=== PATIENT | male | born 1980 | race Caucasian/White ===

== ENCOUNTER → 2018-06-24 15:26 | Outpatient (CLI) | payer BC, SELFPAY ==
[2018-06-24 15:44] LABS: Basophils % 0.4 % (0.1-2.0); Eosinophils # 0.2 K/mm3 (0.0-0.4); Hematocrit 43.7 % (42.0-52.0); Hemoglobin 14.8 g/dL (14.1-18.0); Lymphocytes # 2.2 K/mm3 (0.7-4.5); Lymphocytes % 24.4 % (10-50); Mean Corpuscular Volume 85.4 fl (80-94); Mean Platelet Volume 6.9 fl (7.4-10.4); Monocytes # 0.4 K/mm3 (0.1-1.0); Monocytes % 4.6 % (1.7-9.3); Neutrophils # 6.1 K/mm3 (1.8-7.8); Neutrophils % 68.6 % (37.0-80.0); Platelet Count 272 K/mm3 (142-424); Red Blood Count 5.12 M/mm3 (4.60-6.20); Red Cell Distribution Width 13.6 % (11.5-17.5); White Blood Count 8.9 K/mm3 (4.8-10.8)
[2018-06-24 16:19] LABS: Alanine Aminotransferase 24 U/L (12-78); Albumin Level 3.6 gm/dL (3.4-5.0); Albumin/Globulin Ratio 1.1 (1.1-1.8); Alkaline Phosphatase 84 U/L (46-116); Anion Gap 11.1 mEq/L (5-15); Aspartate Amino Transferase 10 U/L (15-37); Bilirubin,Total 0.5 mg/dL (0.2-1.0); Blood Urea Nitrogen 15 mg/dL (7-18); Calcium 8.6 mg/dL (8.5-10.1); Carbon Dioxide 28 mmol/L (21.0-32.0); Chloride 106 mmol/L (98-107); Cholesterol 172 mg/dL (140-200); Creatinine,Serum 0.91 mg/dL (0.70-1.30); Estimated Glomerular Filt Rate 93 ml/min (>60); GFR (African American) 112 ML/MIN (>60); Globulin 3.4 gm/dl (1.3-3.2); Glucose 97 mg/dL (74-106); HDL Cholesterol 43 mg/dL (27-67); LDL Cholesterol 110 mg/dL (0-130); Potassium 4.1 mmoL/L (3.5-5.1); Sodium 141 mmol/L (136-145); Thyroid Stimulating Hormone 0.46 uIU/ml (0.358-3.740); Triglycerides 96 mg/dL (30-200); VLDL Cholesterol 19 mg/dL (0-40)
== END ==
PROVIDERS: Visit Provider Nurse Practitioner Family
DX: R53.83 Other fatigue (principal)
CPT/HCPCS: 36415; 80053; 80061; 84443; 85025

== ENCOUNTER → 2018-09-16 15:50 | Outpatient (CLI) | payer BC, SELFPAY | PROVIDERS: PCP Emergency Medicine; Visit Provider Nurse Practitioner Family | DX: R53.83 Other fatigue (principal) | CPT/HCPCS: 95806 ==

== ENCOUNTER → 2019-01-17 13:17 | Outpatient (CLI) | payer BC, SELFPAY | PROVIDERS: Visit Provider Nurse Practitioner Family | DX: N50.819 Testicular pain, unspecified (principal) | CPT/HCPCS: 87086 ==

== ENCOUNTER → 2019-03-30 11:19 | Outpatient (CLI) | payer BC, SELFPAY | PROVIDERS: PCP Nurse Practitioner Family; Visit Provider Nurse Practitioner Family | DX: G47.33 Obstructive sleep apnea (adult) (pediatric) (principal); I10 Essential (primary) hypertension | CPT/HCPCS: 94762 ==

== ENCOUNTER → 2019-07-04 13:46 | Outpatient (CLI) | payer BC, SELFPAY ==
[2019-07-04 14:13] LABS: Basophils % 0.4 % (0.1-2.0); Eosinophils # 0.2 K/mm3 (0.0-0.4); Eosinophils % 2.4 % (0.1-12.0); Hematocrit 45.1 % (42.0-52.0); Hemoglobin 14.4 g/dL (14.1-18.0); Lymphocytes # 2.9 K/mm3 (0.7-4.5); Lymphocytes % 30.8 % (10-50); Mean Corpuscular Hemoglobin 27.6 pg (27.0-31.2); Mean Corpuscular Volume 86.3 fl (80-94); Mean Platelet Volume 7.8 fl (7.4-10.4); Monocytes # 0.5 K/mm3 (0.1-1.0); Neutrophils # 5.8 K/mm3 (1.8-7.8); Neutrophils % 61.3 % (37.0-80.0); Platelet Count 366 K/mm3 (142-424); Red Blood Count 5.23 M/mm3 (4.60-6.20); Red Cell Distribution Width 13.3 % (11.5-17.5); White Blood Count 9.5 K/mm3 (4.8-10.8)
[2019-07-04 14:43] LABS: Alanine Aminotransferase 34 U/L (12-78); Albumin Level 3.8 gm/dL (3.4-5.0); Albumin/Globulin Ratio 1.2 (1.1-1.8); Alkaline Phosphatase 83 U/L (46-116); Anion Gap 13.9 mEq/L (5-15); Aspartate Amino Transferase 28 U/L (15-37); Bilirubin,Total 0.3 mg/dL (0.2-1.0); Blood Urea Nitrogen 26 mg/dL (7-18); Calcium 8.3 mg/dL (8.5-10.1); Carbon Dioxide 27 mmol/L (21.0-32.0); Chloride 103 mmol/L (98-107); Chol/HDL Ratio 4.1 (1-3.5); Cholesterol 171 mg/dL (140-200); Creatinine,Serum 1.24 mg/dL (0.70-1.30); Estimated Glomerular Filt Rate 65 ml/min (>60); GFR (African American) 78 ML/MIN (>60); Globulin 3.3 gm/dl (1.3-3.2); Glucose 91 mg/dL (74-106); HDL Cholesterol 42 mg/dL (27-67); LDL Cholesterol 109 mg/dL (0-130); Potassium 3.9 mmoL/L (3.5-5.1); Sodium 140 mmol/L (136-145); T4 (Thyroxine) 10.6 ug/dl (4.7-13.3); Thyroid Stimulating Hormone 2.36 uIU/ml (0.358-3.740); Total Protein,Serum 7.1 gm/dL (6.4-8.2); Triglycerides 100 mg/dL (30-200); VLDL Cholesterol 20 mg/dL (0-40)
[2019-07-05 14:12] LABS: Vitamin D 25 Hydroxy 17.9 ng/mL (30.0-100.0)
== END ==
PROVIDERS: Visit Provider Nurse Practitioner Family
DX: K04.7 Periapical abscess without sinus (principal); I10 Essential (primary) hypertension; E55.9 Vitamin D deficiency, unspecified
CPT/HCPCS: 80053; 80061; 82652; 84436; 84443; 85025

== ENCOUNTER → 2020-01-03 12:56 | Outpatient (CLI) | payer BC, SELFPAY ==
[2020-01-03 14:19] LABS: Basophils # 0.1 K/mm3 (0-0.2); Basophils % 0.5 % (0.1-2.0); Eosinophils # 0.2 K/mm3 (0.0-0.4); Eosinophils % 2.4 % (0.1-12.0); Hematocrit 41.1 % (42.0-52.0); Hemoglobin 13.8 g/dL (14.1-18.0); Lymphocytes # 2.8 K/mm3 (0.7-4.5); Lymphocytes % 31.3 % (10-50); Mean Corpuscular HGB Conc 33.5 g/dL (31.8-35.4); Mean Corpuscular Hemoglobin 28.5 pg (27.0-31.2); Mean Corpuscular Volume 85.1 fl (80-94); Mean Platelet Volume 7.8 fl (7.4-10.4); Monocytes # 0.6 K/mm3 (0.1-1.0); Monocytes % 6.6 % (1.7-9.3); Neutrophils # 5.3 K/mm3 (1.8-7.8); Neutrophils % 59.2 % (37.0-80.0); Platelet Count 289 K/mm3 (142-424); Red Blood Count 4.83 M/mm3 (4.60-6.20); Red Cell Distribution Width 13.8 % (11.5-17.5)
[2020-01-03 14:32] LABS: Chloride 104 mmol/L (98-107)
[2020-01-03 14:33] LABS: Potassium 3.7 mmoL/L (3.5-5.1); Sodium 139 mmol/L (136-145)
[2020-01-03 14:35] LABS: Alanine Aminotransferase 22 U/L (12-78); Alkaline Phosphatase 74 U/L (38-126); Anion Gap 9.7 mEq/L (5-15); Aspartate Amino Transferase 27 U/L (17-59); Bilirubin,Total 0.4 mg/dl (0.2-1.3); Blood Urea Nitrogen 18 mg/dl (9-20); Carbon Dioxide 29 mmol/L (22.0-30.0); Cholesterol 148 mg/dl (140-200); Estimated Glomerular Filt Rate 93 ml/min (>60); GFR (African American) 113 ML/MIN (>60); Triglycerides 165 mg/dl (30-150); VLDL Cholesterol 33 mg/dL (0-40)
[2020-01-03 14:36] LABS: Albumin Level 3.6 g/dl (3.5-5.0); Albumin/Globulin Ratio 1.3 (1.1-1.8); Chol/HDL Ratio 3.5 (1-3.5); Globulin 2.7 g/dL (1.3-3.2); Glucose 78 mg/dl (74-100); HDL Cholesterol 42 mg/dl (40-60); Total Protein,Serum 6.3 g/dl (6.3-8.2)
[2020-01-03 15:26] LABS: Direct LDL Cholesterol 97.32 mg/dL (100-129)
[2020-01-03 15:32] LABS: T4 (Thyroxine) 8.4 ug/dl (5.53-11.0)
[2020-01-03 15:46] LABS: Thyroid Stimulating Hormone 1.78 uIU/mL (0.465-4.68)
[2020-01-04 10:01] LABS: Vitamin D 25 Hydroxy 40.4 ng/mL (30.0-100.0)
== END ==
LOC: LAB.DROPOF 12:56
PROVIDERS: Visit Provider Nurse Practitioner Family
DX: I10 Essential (primary) hypertension (principal)
CPT/HCPCS: 80053; 80061; 82652; 84436; 84443; 85025

== ENCOUNTER → 2020-01-15 12:14 | Outpatient (CLI) | payer BC, SELFPAY ==
--- NOTE | 2020-01-15 12:23 | XR_ITS ---
PROCEDURE: XR KNEE RT 4V CLINICAL INDICATION: right knee pain COMPARISON: No exams were available for comparison FINDINGS: No fracture or dislocation. No lytic or blastic change. There is normal mineralization. Mild osteoarthritic changes of the medial compartment and patellofemoral joint Other findings:None. IMPRESSION: Mild osteoarthritis Dictated by: Christian Nunez MD 01/15/2020 13:33 Electronically signed by Christian Nunez MD in [facility] 01/15/2020 13:33
--- NOTE | 2020-01-15 12:23 | XR_ITS ---
PROCEDURE: XR KNEE LT 4V CLINICAL INDICATION: left knee pain COMPARISON: No exams were available for comparison FINDINGS: No fracture or dislocation. No lytic or blastic change. There is normal mineralization. Mild osteoarthritic change of the medial compartment and patellofemoral joint Other findings:None. IMPRESSION: Mild osteoarthritis Dictated by: Christian Nunez MD 01/15/2020 13:33 Electronically signed by Christian Nunez MD in [facility] 01/15/2020 13:33
== END ==
LOC: RAD 12:18
PROVIDERS: PCP Nurse Practitioner Family; Visit Provider Orthopaedic Surgery
DX: M25.562 Pain in left knee (principal); M25.561 Pain in right knee
CPT/HCPCS: 73564

== ENCOUNTER 2020-02-14 00:03 | Emergency (ER) | payer BC, SELFPAY ==
[2020-02-14 00:17] VITALS: BP 129/79; PULSE 83; RESP 14; TEMP 36.6; O2SAT 98; BMI 50.1
[2020-02-14 00:31] LABS: Basophils % 0.4 % (0.1-2.0); Eosinophils # 0.3 K/mm3 (0.0-0.4); Eosinophils % 2.5 % (0.1-12.0); Hematocrit 42.5 % (42.0-52.0); Hemoglobin 14.6 g/dL (14.1-18.0); Lymphocytes # 2.7 K/mm3 (0.7-4.5); Lymphocytes % 24.5 % (10-50); Mean Corpuscular HGB Conc 34.3 g/dL (31.8-35.4); Mean Corpuscular Hemoglobin 28.7 pg (27.0-31.2); Mean Corpuscular Volume 83.7 fl (80-94); Mean Platelet Volume 7.3 fl (7.4-10.4); Monocytes # 0.6 K/mm3 (0.1-1.0); Monocytes % 5.2 % (1.7-9.3); Neutrophils # 7.5 K/mm3 (1.8-7.8); Neutrophils % 67.4 % (37.0-80.0); Platelet Count 279 K/mm3 (142-424); Red Blood Count 5.07 M/mm3 (4.60-6.20); Red Cell Distribution Width 13.9 % (11.5-17.5); White Blood Count 11.2 K/mm3 (4.8-10.8)
--- NOTE | 2020-02-14 00:34 | HMH.EDGENADL ---
ED Disposition Clinical Impression: Anxiety about health Disposition: Home, Self-Care Condition on Discharge: Fair Additional Instructions: We are glad to let you know that we checked your labs and no acute findings of concern are noted. Your blood pressure has returned to normal without intervention. Please follow up as needed Referrals: Barrett Youssef APRN [Primary Care Provider] - Forms: Work/School Release - Critical Care Critical Care Time: No Attestation: On 02/14/20, the high probability of a clinically significant, sudden or life threatening deterioration of the following system(s) required my full and direct attention, intervention and personal management. The time I documented below is in addition to time spent performing reported procedures but includes the following listed in this critical care notation. Medical Decision Making - Medical Records Medical records reviewed: Yes: I reviewed the patient's medical records. - Dustin Inquiry Pt receiving controlled substance: No Vital Signs: 02/14/20 00:17 02/14/20 01:45 Temperature 97.9 F Temperature Source Oral Pulse Rate [Right] 83 74 Respiratory Rate 14 14 Blood Pressure [Right Arm] 129/79 122/69 Blood Pressure Mean [Right Arm] 95 86 Blood Pressure Source [Right Arm] Automatic Cuff Blood Pressure Position [Right Arm] Supine 02 Sat by Pulse Oximetry 98 98 Oxygen Delivery Method Room Air Room Air - Lab Data Lab results reviewed: Yes: I reviewed the patient's lab results. Lab Results 02/14/20 00:25: WBC 11.2 H, RBC 5.07, Hgb 14.6, Hct 42.5, MCV 83.7, MCH 28.7, MCHC 34.3, RDW 13.9, Plt Count 279, MPV 7.3 L, Neut % (Auto) 67.4, Lymph % (Auto) 24.5, [place] % (Auto) 5.2, Eos % (Auto) 2.5, Baso % (Auto) 0.4, Neut # (Auto) 7.5, Lymph # (Auto) 2.7, [place] # (Auto) 0.6, Eos # (Auto) 0.3, Baso # (Auto) 0.0 02/14/20 00:25: Sodium 142, Potassium 3.6, Chloride 106, Carbon Dioxide 27, Anion Gap 12.6, BUN 19, Creatinine 0.90, Estimated Creat Clear 105, Estimated GFR 93, Est GFR ( Amer) 113, Glucose 122 H, Calcium 9.3, Total Bilirubin 0.5, AST 47, ALT 31, Alkaline Phosphatase 83, Total Protein 7.4, Albumin 4.3, Globulin 3.1, Albumin/Globulin Ratio 1.4 Result diagrams: 02/14/20 00:25 02/14/20 00:25 Orders (Tests/Meds): ED MEDICATIONS Generic Name Dose Route Start Last Admin Trade Name Freq PRN Reason Stop Dose Admin Sodium Chloride 1,000 mls @ 999 mls/hr 02/14/20 00:30 02/14/20 00:28 Sod Chlor 0.9% 1000ml Bag IV 02/14/20 01:30 999 mls/hr .Q1H1M MERY Administration ORDERS Category Date Time Status Troponin I Q3H Lab 02/14/20 04:15 Ordered Troponin I Q3H Lab 02/14/20 07:15 Ordered General Adult HPI - General Chief complaint: Dizziness Stated complaint: High Blood Pressure,dizziness Time Seen by Provider: 02/14/20 00:28 Mode of Arrival: Ambulatory Source of Information: Patient, Parent(s) Limitations: No Limitations Description of Symptoms (Recalled from ER Triage Doc. by RN): Pt states he started getting dizzy about 2100 tonight, ate some food and it didn't get any better. - History of Present Illness HPI narrative: Patient was at work and felt dizzy; Also checked his BP and found it to be elevated and thought that he needs to be checked out. He is morbidly obese, denies chest pain Onset (ago): minute(s) Radiation: non-radiation Severity: mild Severity scale (1-10): 2 Consistency: constant Relieving factors: rest Associated symptoms: denies other symptoms Treatments prior to arrival: none - Related Data Previous Rx's Medication Instructions Recorded cholecalciferol (vitamin D3) 1,250 50,000 unit PO QWEEK #7 tab 01/03/20 mcg (50,000 unit) tablet cholecalciferol (vitamin D3) 50 50 mcg PO DAILY #30 cap 01/03/20 mcg (2,000 unit) capsule lisinopril 10 See Rx Instructions .ROUTE 01/03/20 mg-hydrochlorothiazide 12.5 mg .COMPLEX #90 unspecified tablet Allergies Allergy/AdvReac Type Severity React
[2020-02-14 00:38] LABS: Alanine Aminotransferase 31 U/L (12-78); Albumin Level 4.3 g/dl (3.5-5.0); Albumin/Globulin Ratio 1.4 (1.1-1.8); Alkaline Phosphatase 83 U/L (38-126); Anion Gap 12.6 mEq/L (5-15); Aspartate Amino Transferase 47 U/L (17-59); Bilirubin,Total 0.5 mg/dl (0.2-1.3); Blood Urea Nitrogen 19 mg/dl (9-20); Calcium 9.3 mg/dl (8.4-10.2); Carbon Dioxide 27 mmol/L (22.0-30.0); Chloride 106 mmol/L (98-107); Creatinine Clearance Estimated 105 mL/min (50-200); Estimated Glomerular Filt Rate 93 ml/min (>60); GFR (African American) 113 ML/MIN (>60); Globulin 3.1 g/dL (1.3-3.2); Glucose 122 mg/dl (74-100); Potassium 3.6 mmoL/L (3.5-5.1); Sodium 142 mmol/L (136-145); Total Protein,Serum 7.4 g/dl (6.3-8.2)
[2020-02-14 01:45] VITALS: BP 122/69; PULSE 74; RESP 14; O2SAT 98
[2020-02-14 02:02] VITALS: BP 125/62; PULSE 74; RESP 18; TEMP 36.6; O2SAT 98
== END 2020-02-14 02:04 | disposition home or self-care (01) ==
PROVIDERS: Emergency Provider Emergency Medicine; PCP Nurse Practitioner Family
DX: F41.9 Anxiety disorder, unspecified (principal); R42 Dizziness and giddiness; I10 Essential (primary) hypertension; E66.01 Morbid (severe) obesity due to excess calories; Z68.43 Body mass index [BMI] 50.0-59.9, adult
CPT/HCPCS: 80053; 85025; 96365; 99283

== ENCOUNTER → 2020-06-14 11:16 | Outpatient (CLI) | payer BC, SELFPAY ==
--- NOTE | 2020-06-14 11:19 | XR_ITS ---
PROCEDURE: XR LUMBAR SPINE MIN 4V CLINICAL INDICATION: back spine COMPARISON: No exams were available for comparison FINDINGS: There is markedly accentuated lordotic curvature lower lumbar spine with increased lumbosacral angle. Also a line dropped perpendicular from the body of L3 falls anterior to the sacrum and both of these findings are suggestive of instability of the lower back and can be a cause for low back pain. There is no disc space narrowing. There are mildly hypertrophic facet changes at the L4-5 and L5-S1 levels. There is no pars defect. The SI joints are normal. IMPRESSION: Accentuated lumbar lordosis and mild hypertrophic facet changes lower lumbar spine Dictated by: Dr. Uvaldo Kulkarni MD 06/14/2020 13:19 Dr. Uvaldo Kulkarni MD in [facility] 06/14/2020 13:19
== END ==
LOC: RAD 11:17
PROVIDERS: PCP Emergency Medicine; Visit Provider Emergency Medicine
DX: M54.5 Low back pain (principal)
CPT/HCPCS: 72110

== ENCOUNTER → 2020-08-04 23:22 | Outpatient (CLI) | payer BC, SELFPAY | PROVIDERS: PCP Emergency Medicine; Visit Provider Emergency Medicine | DX: Z11.52 Encounter for screening for COVID-19 (principal); R05 Cough | CPT/HCPCS: U0003 ==

== ENCOUNTER 2020-11-08 16:00 | Outpatient (RCR) | payer BC, SELFPAY ==
--- NOTE | 2020-10-11 15:47 | HMH.PTOPEV ---
PT Outpatient Evaluation Rehab PT Outpatient Evaluation Start: 10/11/20 14:50 Freq: Status: Active Protocol: Document 10/11/20 15:27 FRIDA (Rec: 10/11/20 15:46 FRIDA [id number]) Electronically Signed By Oscar Suggs, PT 10/11/20 15:27 Outpatient Therapy Subjective History Subjective History Patient is a 39 year old male presenting to outpatient PT with reports of chronic L knee pain starting approximately 6 months ago that has progressively gotten worse. No specific mechanism of injury to report. Patient received an injection approximately 4 months ago that provided some significant relief. Comorbidities include HTN and VitD deficency . Chief Complaint Pain,Clicks,Catches/Locks, Gives out/Unstable Symptom Type Ache,Sharp Symptoms Relieved By Rest/Positioning,Prescription Meds,Activity Symptoms Aggravated By Standing,Physical Activity, Walking Prior Functional Limitations None Current Functional Limitations Lifting,Housework,Standing, Squatting,Recreation Activity, Walking Symptom Description Constant but Variable Level of pain today (0-10) 1 Pain scale - at its best (0-10) 1 Pain scale - at its worst (0-10) 9 Hip/Knee Eval Gait Observation General Gait Pattern Observation Antalgic Gait,Decrease Weight Bear (L) Assistive Device Assistive Devices None / NA,Standard Walker Palpation Tenderness left Knee Palpation Finding Tenderness Knee Palpation Overall Comment L medial joint line 2/4 MMT Hip Flexion Strength Grade 4 Good Hip Abduction Strength Grade 4 Good Hip Adduction Strength Grade 4 Good Hip Extension Strength Grade 4- Good- Hip External Rotation Strength Grade 4- Good- Hip Internal Rotation Strength Grade 4- Good- Knee Extension Strength Grade 4 Good Knee Flexion Strength Grade 5 Normal ROM right Hip ROM Reason Not Measured Within Functional Limits Knee Extension Active Range of Motion ( 0 degrees) Knee Flexion Active Range of Motion ( 126 degrees) left Hip ROM Reason Not Measured Within Functional Limits Knee Extension Active Range of Motion ( 0 degrees) Knee Flexion Active Range o
== END 2020-11-08 16:05 | disposition home or self-care (01) ==
LOC: PT 16:00
PROVIDERS: PCP Emergency Medicine; Visit Provider Nurse Practitioner Family
DX: M25.562 Pain in left knee (principal)
CPT/HCPCS: 97010; 97014; 97110; 97163; G0283

== ENCOUNTER 2020-12-31 23:16 | Emergency (ER) | payer BC, SELFPAY ==
[2020-12-31 23:17] VITALS: BP 120/64; PULSE 84; RESP 14; TEMP 36.4; O2SAT 99; BMI 47.4
--- NOTE | 2020-12-31 23:26 | ECG_ITS ---
APPROVED REPORT Exam: Resting ECG HR:78 bpm ECG Measurements Heart Rate 78 AXES NE 150 P 33 QRSd 100 QRS 64 QT 356 T 35 QTc 405 Conclusion Normal sinus rhythm Normal ECG Electronically signed by : Del Dimas, 01/01/2021 17:56:42
--- NOTE | 2020-12-31 23:27 | XR_ITS ---
PROCEDURE INFORMATION: Exam: XR Chest Exam date and time: 12/31/2020 11:27 PM Age: 40 years old Clinical indication: Other: Chest pain and dizziness; Chest pressure; Patient HX: Chest pain and dizzy TECHNIQUE: Imaging protocol: XR of the chest. Views: 2 views. COMPARISON: No relevant prior studies available. FINDINGS: Lungs: Unremarkable. No consolidation. Pleural spaces: Unremarkable. No pleural effusion. No pneumothorax. Heart/Mediastinum: Unremarkable. No cardiomegaly. Bones/joints: Unremarkable. IMPRESSION: No acute findings.
[2020-12-31 23:30] VITALS: BP 112/64; PULSE 86; RESP 18; O2SAT 94
[2020-12-31 23:40] LABS: Basophils % 0.4 % (0.1-2.0); Eosinophils # 0.1 K/mm3 (0.0-0.4); Eosinophils % 1.2 % (0.1-12.0); Hematocrit 44.3 % (42.0-52.0); Lymphocytes # 2.5 K/mm3 (0.7-4.5); Lymphocytes % 24.3 % (10-50); Mean Corpuscular HGB Conc 36.1 g/dL (31.8-35.4); Mean Corpuscular Hemoglobin 29.6 pg (27.0-31.2); Mean Platelet Volume 7.4 fl (7.4-10.4); Monocytes # 0.5 K/mm3 (0.1-1.0); Monocytes % 4.9 % (1.7-9.3); Neutrophils % 69.2 % (37.0-80.0); Platelet Count 311 K/mm3 (142-424); Red Blood Count 5.41 M/mm3 (4.60-6.20); Red Cell Distribution Width 13.4 % (11.5-17.5); White Blood Count 10.1 K/mm3 (4.8-10.8)
[2020-12-31 23:44] LABS: Alanine Aminotransferase 25 U/L (12-78); Albumin Level 4.3 g/dl (3.5-5.0); Alkaline Phosphatase 74 U/L (38-126); Anion Gap 7.8 mEq/L (5-15); Aspartate Amino Transferase 40 U/L (17-59); Bilirubin,Direct 0.3 mg/dl (0.0-0.4); Bilirubin,Indirect 0.3 mg/dL (0.0-0.9); Bilirubin,Total 0.6 mg/dl (0.2-1.3); Bilirubin,Unconjugated 0.2 mg/dL (0.0-1.1); Blood Urea Nitrogen 18 mg/dl (9-20); Calcium 9.1 mg/dl (8.4-10.2); Carbon Dioxide 30 mmol/L (22.0-30.0); Chloride 104 mmol/L (98-107); Creatinine Clearance Estimated 78 mL/min (50-200); Estimated Glomerular Filt Rate 66 ml/min (>60); GFR (African American) 80 ML/MIN (>60); Glucose 97 mg/dl (74-100); Potassium 3.8 mmoL/L (3.5-5.1); Sodium 138 mmol/L (136-145); Total Protein,Serum 7.4 g/dl (6.3-8.2)
[2020-12-31 23:51] LABS: C-Reactive Protein 13.2 mg/L (0-4)
[2020-12-31 23:54] LABS: Adenovirus,PCR Not Detected (NotDetected); Bordetella Pertussis Not Detected (NotDetected); Chlamydophila Pneumoniae, PCR Not Detected (NotDetected); Coronavirus 19, PCR Not Detected (NotDetected); Coronavirus 229E Not Detected (NotDetected); Coronavirus NL63 Not Detected (NotDetected); Coronavirus OC43 Not Detected (NotDetected); Coronovirus HKU1,PCR Not Detected (NotDetected); Human Metapneumovirus Not Detected (NotDetected); Influenza A, PCR Not Detected (NotDetected); Influenza AH1, 2009 Not Detected (NotDetected); Influenza AH1, PCR Not Detected (NotDetected); Influenza AH3,PCR Not Detected (NotDetected); Influenza B, PCR Not Detected (NotDetected); Mycoplasma Pneumoniae, PCR Not Detected (NotDetected); Parainfluenza 1, PCR Not Detected (NotDetected); Parainfluenza 2, PCR Not Detected (NotDetected); Parainfluenza 3, PCR Not Detected (NotDetected); Parainfluenza 4, PCR Not Detected (NotDetected); Respiratory Syncytial Virus Not Detected (NotDetected); Rhinovirus/Enterovirus Not Detected (NotDetected)
[2021-01-01] VITALS: BP 106/65; PULSE 69; RESP 17; O2SAT 97
[2021-01-01 00:03] LABS: Procalcitonin 0.041 ng/mL (0.0-2.0)
[2021-01-01 00:17] LABS: Troponin I < 0.01 ng/ml (0.00-0.034)
[2021-01-01 00:30] VITALS: BP 98/64; PULSE 69; RESP 14; O2SAT 94
--- NOTE | 2021-01-01 00:39 | HMH.EDCP ---
ED Disposition Clinical Impression: Dizziness Chest pain Qualifiers: Chest pain type: unspecified Qualified Code(s): R07.9 - Chest pain, unspecified Disposition: Home, Self-Care Condition on Discharge: Good Instructions: DI for Atypical Chest Pain Additional Instructions: see pcp today for follow up Referrals: Momo Marcial APRN [Primary Care Provider] - Forms: Work/School Release - Critical Care Critical Care Time: No Attestation: On 12/31/20, the high probability of a clinically significant, sudden or life threatening deterioration of the following system(s) required my full and direct attention, intervention and personal management. The time I documented below is in addition to time spent performing reported procedures but includes the following listed in this critical care notation. Medical Decision Making - Medical Records Medical records reviewed: Yes: I reviewed the patient's medical records. - Dustin Inquiry Pt receiving controlled substance: No Vital Signs: 12/31/20 23:17 12/31/20 23:30 01/01/21 00:00 Temperature 97.5 F L Temperature Source Oral Pulse Rate 86 69 Pulse Rate [Right] 84 Respiratory Rate 14 18 17 Blood Pressure 112/64 106/65 L Blood Pressure [Right Arm] 120/64 Blood Pressure Mean [Right Arm] 82 Blood Pressure Source [Right Arm] Automatic Cuff Blood Pressure Position [Right Arm] Supine 02 Sat by Pulse Oximetry 99 94 L 97 Oxygen Delivery Method Room Air 01/01/21 00:30 01/01/21 01:00 01/01/21 01:53 Temperature Temperature Source Pulse Rate 69 70 69 Pulse Rate [Right] Respiratory Rate 14 21 Blood Pressure 98/64 L 108/69 L 115/73 Blood Pressure [Right Arm] Blood Pressure Mean [Right Arm] Blood Pressure Source [Right Arm] Blood Pressure Position [Right Arm] 02 Sat by Pulse Oximetry 94 L 95 98 Oxygen Delivery Method - Lab Data Lab results reviewed: Yes: I reviewed the patient's lab results. Lab Results 12/31/20 23:20: WBC 10.1, RBC 5.41, Hgb 16.0, Hct 44.3, MCV 82.0, MCH 29.6, MCHC 36.1 H, RDW 13.4, Plt Count 311, MPV 7.4, Neut % (Auto) 69.2, Lymph % (Auto) 24.3, [place] % (Auto) 4.9, Eos % (Auto) 1.2, Baso % (Auto) 0.4, Neut # (Auto) 7.0, Lymph # (Auto) 2.5, [place] # (Auto) 0.5, Eos # (Auto) 0.1, Baso # (Auto) 0.0 12/31/20 23:20: Sodium 138, Potassium 3.8, Chloride 104, Carbon Dioxide 30, Anion Gap 7.8, BUN 18, Creatinine 1.20, Estimated Creat Clear 78, Estimated GFR 66, Est GFR ( Amer) 80, Glucose 97, Calcium 9.1, Total Bilirubin 0.6, Direct Bilirubin 0.3, Conjugated Bilirubin 0.0, Indirect Bilirubin 0.3, Unconjugated Bilirubin 0.2, AST 40, ALT 25, Alkaline Phosphatase 74, Troponin I < 0.01, C-Reactive Protein 13.2 H, Total Protein 7.4, Albumin 4.3 12/31/20 23:20: ESR 19 H 12/31/20 23:20: Procalcitonin 0.041 12/31/20 23:50: Chlamy pneumoniae PCR Not detected, Adenovirus (PCR) Not detected, B. pertussis DNA (PCR) Not detected, Coronavirus OC43 (PCR) Not detected, Coronavirus HKU1 (PCR) Not detected, Coronavirus 229E (PCR) Not detected, SARS-CoV-2 (PCR) Not detected, Coronavirus NL63 (PCR) Not detected, Human Metapneumovir PCR Not detected, Influenza A (H1) PCR Not detected, Influ A (H1N1/09) PCR Not detected, Influenza A (H3) PCR Not detected, Influenza Type A (PCR) Not detected, Influenza Type B (PCR) Not detected, M. pneumoniae (PCR) Not detected, Parainfluenza 1 (PCR) Not detected, Parainfluenza 2 (PCR) Not detected, Parainfluenza 3 (PCR) Not detected, Parainfluenza 4 (PCR) Not detected, RSV (PCR) Not detected, Entero/Rhino (PCR) Not detected 01/01/21 02:17: Troponin I < 0.01 Result diagrams: 12/31/20 23:20 12/31/20 23:20 Orders (Tests/Meds): ED MEDICATIONS Generic Name Dose Route Start Last Admin Trade Name Freq PRN Reason Stop Dose Admin Sodium Chloride 1,000 mls @ 999 mls/hr 12/31/20 23:30 12/31/20 23:31 Sod Chlor 0.9% 1000ml Bag IV 01/01/21 00:30 999 mls/hr .Q1H1M MERY Administration Discontinued M
[2021-01-01 00:45] LABS: Erythrocyte Sedimentation Rate 19 mm/hr (0-15)
--- NOTE | 2021-01-01 00:55 | CT_ITS ---
PROCEDURE INFORMATION: Exam: CT Angiography Head With Contrast, Arteriography Exam date and time: 01/01/2021 12:55 AM Age: 40 years old Clinical indication: Dizziness and giddiness and other: Near syncope and chest pain; Patient HX: Near syncope, chest pain and dizzy TECHNIQUE: Imaging protocol: Computed tomography angiography of the head with contrast. Exam focused on the arteries. 3D rendering (Not supervised by radiologist): MIP and/or 3D reconstructed images were created by the technologist. Radiation optimization: All CT scans at this facility use at least one of these dose optimization techniques: automated exposure control; mA and/or kV adjustment per patient size (includes targeted exams where dose is matched to clinical indication); or iterative reconstruction. Contrast material: ISOVUE 370; Contrast volume: 100 ml; Contrast route: INTRAVENOUS (IV); COMPARISON: CT HEAD/BRAIN WO CON 01/01/2021 1:19 AM FINDINGS: ANTERIOR CIRCULATION: Right internal carotid artery: Unremarkable. Intracranial segment is patent with no significant stenosis. No aneurysm. Right middle cerebral artery: Unremarkable. No occlusion or significant stenosis. No aneurysm. Right anterior cerebral artery: Unremarkable. No occlusion or significant stenosis. No aneurysm. Left internal carotid artery: Unremarkable. Intracranial segment is patent with no significant stenosis. No aneurysm. Left middle cerebral artery: Unremarkable. No occlusion or significant stenosis. No aneurysm. Left anterior cerebral artery: Unremarkable. No occlusion or significant stenosis. No aneurysm. POSTERIOR CIRCULATION: Right vertebral artery: Unremarkable. No occlusion or significant stenosis. No aneurysm. Left vertebral artery: Unremarkable. No occlusion or significant stenosis. No aneurysm. Basilar artery: Unremarkable. No occlusion or significant stenosis. No aneurysm. Right posterior cerebral artery: Unremarkable. No occlusion or significant stenosis. No aneurysm. Left posterior cerebral artery: Unremarkable. No occlusion or significant stenosis. No aneurysm. Brain: No definite mass, mass effect, or midline shift. Cerebral ventricles: No ventriculomegaly. Bones/joints: Unremarkable. No acute fracture. Soft tissues: Unremarkable. IMPRESSION: No large vessel stenosis or occlusion.
--- NOTE | 2021-01-01 00:55 | CT_ITS ---
PROCEDURE INFORMATION: Exam: CT Angiography Neck With Contrast Exam date and time: 01/01/2021 12:55 AM Age: 40 years old Clinical indication: Dizziness and giddiness and other: Chest pain; Patient HX: Near syncope dizzy chest pain TECHNIQUE: Imaging protocol: Computed tomography angiography of the neck with contrast. 3D rendering (Not supervised by radiologist): MIP and/or 3D reconstructed images were created by the technologist. Radiation optimization: All CT scans at this facility use at least one of these dose optimization techniques: automated exposure control; mA and/or kV adjustment per patient size (includes targeted exams where dose is matched to clinical indication); or iterative reconstruction. Contrast material: ISOVUE 370; Contrast volume: 100 ml; Contrast route: INTRAVENOUS (IV); COMPARISON: No relevant prior studies available. FINDINGS: Right common carotid artery: No stenosis. No dissection or occlusion. Right internal carotid artery: No stenosis of the extracranial segment. No dissection or occlusion. Right external carotid artery: No occlusion or stenosis of the origin. Left common carotid artery: No stenosis. No dissection or occlusion. Left internal carotid artery: No stenosis of the extracranial segment. No dissection or occlusion. Left external carotid artery: No occlusion or stenosis of the origin. Right vertebral artery: No stenosis. No dissection or occlusion. Left vertebral artery: No stenosis. No dissection or occlusion. Soft tissues: Normal. No significant soft tissue swelling. Bones/joints: No acute fracture. IMPRESSION: No stenosis or occlusion. REFERENCES: NASCET CRITERIA. The degree of internal carotid artery stenosis is based on NASCET criteria. Normal is no stenosis. Mild is less than 50% stenosis. Moderate is 50-69% stenosis. Severe is 70% to 99% stenosis. Total occlusion is no detectable patent lumen.
[2021-01-01 01:00] VITALS: BP 108/69; PULSE 70; RESP 21; O2SAT 95
--- NOTE | 2021-01-01 01:08 | CT_ITS ---
PROCEDURE INFORMATION: Exam: CT Head Without Contrast Exam date and time: 01/01/2021 1:08 AM Age: 40 years old Clinical indication: Dizziness and other: Near syncope and chest pain; Patient HX: Near syncope and chest pain and dizzy TECHNIQUE: Imaging protocol: Computed tomography of the head without contrast. Radiation optimization: All CT scans at this facility use at least one of these dose optimization techniques: automated exposure control; mA and/or kV adjustment per patient size (includes targeted exams where dose is matched to clinical indication); or iterative reconstruction. COMPARISON: No relevant prior studies available. FINDINGS: Brain: Normal. Cerebral ventricles: No ventriculomegaly. Paranasal sinuses: Visualized sinuses are unremarkable. No fluid levels. Mastoid air cells: Normal as visualized. Bones/joints: Normal. Soft tissues: Unremarkable. IMPRESSION: No acute intracranial abnormality.
--- NOTE | 2021-01-01 01:22 | PC.NURSE ---
pt gone to radiology.
--- NOTE | 2021-01-01 01:51 | PC.NURSE ---
pt back in room from radiology
[2021-01-01 01:53] VITALS: BP 115/73; PULSE 69; O2SAT 98
[2021-01-01 02:41] LABS: Troponin I < 0.01 ng/ml (0.00-0.034)
[2021-01-01 03:02] VITALS: BP 115/73; PULSE 72; RESP 16; TEMP 36.4; O2SAT 99
[2021-01-01 03:11] LABS: Chol/HDL Ratio 4.2 (1-3.5); Cholesterol 185 mg/dl (140-200); HDL Cholesterol 44 mg/dl (40-60); Triglycerides 130 mg/dl (30-150); VLDL Cholesterol 26 mg/dL (0-40)
[2021-01-01 03:22] LABS: Direct LDL Cholesterol 107.51 mg/dL (100-129)
== END 2021-01-01 03:06 | disposition home or self-care (01) ==
PROVIDERS: Emergency Provider Emergency Medicine; PCP Nurse Practitioner Family
DX: R07.9 Chest pain, unspecified (principal); R42 Dizziness and giddiness; I10 Essential (primary) hypertension; F41.9 Anxiety disorder, unspecified
CPT/HCPCS: 70450; 70496; 70498; 71046; 80048; 80061; 80076; 84145; 84484; 85025; 85651; 86140; 87581; 87633; 87798; 93005; 96365; 99283; Q9967

== ENCOUNTER → 2021-01-17 14:46 | Outpatient (CLI) | payer BC, SELFPAY ==
--- NOTE | 2021-01-17 14:48 | CA_ITS ---
APPROVED REPORT Exam: Exercise Treadmill Technologist: Lizette Vásquez, Ht: 5 ft 8 in Wt: 301 lbs BSA: 2.43 m2 HR: 92 bpm Rhythm: sinus rhythm Medical History Medical History: HTN Medications: Lisinopri/HCTZ,,,,, Cardiac Risk Factors: HTN Stress Test Details Test: Kayden HR Resting HR: 93 bpm Max Heart Rate (APMHR): 178.983210 bpm Max HR Achieved: 169 bpm Target HR (85% APMHR): 151.359110 bpm % of APMHR: 94.94 Recovery HR: 105 bpm BP Resting BP: 98/63 mmHg Max BP: 154/105 mmHg Recovery BP: 135.0/105.0 mmHg ECG Resting ECG: sinus rythm Clinical Exercise duration: 06:00 min Highest Stage Achieved: Exercise capacity: 7.0 METs Stress ECG Conclusion Kayden protocol completed. Excerise total time 6:00. Mets 7.0. No complaint of chest pain. SOB at peak excerise. Occasional PVCs. Less than 1.5mm ST depression. GXT only. Hypertensive response. Average patient tolerance. Test Summary REST 01:59 0.0 0.0 93 . 98/ 63 . . Stage 1 01:00 10.0 1.7 111 . . . . Stage 1 02:00 10.0 1.7 129 . . . . Stage 1 03:00 10.0 1.7 133 . 142/101 . . Stage 2 01:00 12.0 2.5 155 . . . . Stage 2 02:00 12.0 2.5 165 . . . . Stage 2 03:00 12.0 2.5 167 . 154/105 . Stop exercise at 06:00 RECOVERY 01:00 0.0 0.0 133 . . . . RECOVERY 02:00 0.0 0.0 105 . 135/ 95 . . RECOVERY 03:00 0.0 0.0 97 . 135/ 95 . . RECOVERY 04:00 0.0 0.0 100 . 118/ 93 . . RECOVERY 04:17 0.0 0.0 103 . 118/ 93 . . Electronically signed by : Del Dimas, 01/18/2021 07:14:51
== END ==
LOC: RT 14:48
PROVIDERS: PCP Nurse Practitioner Family; Visit Provider Nurse Practitioner Family
DX: R07.9 Chest pain, unspecified (principal)
CPT/HCPCS: 93017

== ENCOUNTER → 2021-01-21 15:06 | Outpatient (CLI) | payer BC, SELFPAY ==
--- NOTE | 2021-01-21 15:09 | CA_ITS ---
APPROVED REPORT EXAM: Comprehensive 2D, Doppler, and color-flow Echocardiogram Housing Development Specialist: CORIN Murray, RVS Ht: 5 ft 8 in Wt: 301lbs BSA: 2.43 BP: 119/79 mmHg Indications: Chest Pain, Obesity, Dizziness and Vertigo, Hypertension/HDD Echo Enhancing Agent Comments: Extreme body habitus 2D Dimensions IVSd 1.11 cm M: 0.6-1.2 LVEF (Visual) 48.50 % PWd 0.92 cm M: 0.6 - 1.2 LA Volume 74.40 mL LVDd 5.37 cm M: 4.2 - 5.9 LA Volume Index [id number] mL/m2 (M/F) 16-34 LVDs 3.95 cm M: 2.5 - 4.0 Aortic Root 3.66 cm M: 3.1 - 3.7 Left Atrium 4.08 cm M: 3.0 - 4.0 LVOT 2.53 cm (M/F) 1.5-2.5 M-Mode Dimensions LA Diam 3.84 cm (1.9-4.0) Ao Diam 3.71 cm (2.0-3.7) EPSs 1.21 cm TAPSE 2.42 (<1.7) LV Diastology E Decel Time 180.00 (160-240 msec) E/A Ratio 1.86 MED E' 11.20 (< 7 cm/sec) MED A' 8.00 cm/s E'/MED E' Ratio 7.90 (>14) LAT E' 12.90 (<10 cm/sec) LAT A' 10.20 cm/s E/LAT E' Ratio 6.86 (>14) Aortic Valve LVOT Max 91.00 (70-110 cm/s) LVOT VTI 18.32 cm AoV Peak Gerald. 106.00 (50-130 cm/s) AO Peak GR. 4.50 mmHg AO Mean GR. 2.30 (<5 mmHg) AO VTI 20.64 (18-25 cm) NURYS (VTI) 4.46 (2.5-4.5 cm2) Mitral Valve MV A Velocity 47.00 (40-130 cm/s) E/A Ratio 1.86 MV Decel. Time 180.00 (160-240 ms) Pulmonary Valve PV Peak Velocity 92.00 (50-150 cm/s) Tricuspid Valve TR P. Velocity 193.00 cm/s RAP Estimate 10.00 mmHg RVSP 24.90 mmHg Left Ventricle Left atrium normal size, left ventricle is normal size, there is no concentric left ventricular hypertrophy, visually estimated ejection fraction 55% with no regional wall motion abnormality, diastolic parameters are within normal range. Right Ventricle Right atrium and right ventricle are normal size and contractility. Aortic Valve Aortic valve is grossly normal, there is no aortic stenosis or aortic insufficiency. Mitral Valve Mitral valve grossly normal, there is trace mitral regurgitation. Tricuspid Valve Tricuspid grossly normal, there is trace tricuspid regurgitation, tricuspid regurgitation jet velocity is inadequate for calculation of the right ventricular systolic pressure. Pulmonic Valve Pulmonic valve is poorly visualized. Great Vessels Aortic root is normal size. Pericardium No significant pericardial effusion noted. Conclusion 1. Normal left ventricular size, preserved left ventricular systolic function, visually estimated ejection fraction 55% with no regional wall motion abnormality, diastolic parameters are within normal range. 2. Trace mitral and tricuspid regurgitation. 3. No significant pericardial effusion noted. Electronically signed by : Abraham Emanuel, 01/21/2021 21:20:54
== END ==
LOC: RT 15:09
PROVIDERS: PCP Nurse Practitioner Family; Visit Provider Nurse Practitioner Family
DX: R07.9 Chest pain, unspecified (principal)
CPT/HCPCS: 93306

== ENCOUNTER 2021-08-11 21:39 | Emergency (ER) | payer BC, SELFPAY ==
[2021-08-11 21:40] VITALS: BP 124/85; PULSE 84; RESP 18; TEMP 36.7; O2SAT 100; BMI 48.8
[2021-08-11 21:50] VITALS: BMI 47.4
--- NOTE | 2021-08-11 21:55 | XR_ITS ---
PROCEDURE INFORMATION: Exam: XR Chest Exam date and time: 08/11/2021 9:55 PM Age: 40 years old Clinical indication: Fever and shortness of breath TECHNIQUE: Imaging protocol: XR of the chest. Views: 2 views. COMPARISON: CR XR CHEST 2V 12/31/2020 11:29 PM FINDINGS: Lungs: Unremarkable. No consolidation. Pleural spaces: Unremarkable. No pleural effusion. No pneumothorax. Heart/Mediastinum: Unremarkable. No cardiomegaly. Bones/joints: Unremarkable. IMPRESSION: No acute findings.
[2021-08-11 22:06] LABS: Coronavirus 19, PCR Not Detected (NotDetected); Influenza A, PCR Not Detected (NotDetected); Influenza B, PCR Not Detected (NotDetected)
[2021-08-11 22:12] LABS: Basophils # 0.1 K/mm3 (0-0.2); Basophils % 1.1 % (0.1-2.0); Eosinophils # 0.2 K/mm3 (0.0-0.4); Eosinophils % 1.6 % (0.1-12.0); Hematocrit 46.4 % (42.0-52.0); Hemoglobin 15.1 g/dL (14.1-18.0); Lymphocytes # 2.3 K/mm3 (0.7-4.5); Lymphocytes % 23.4 % (10-50); Mean Corpuscular HGB Conc 32.5 g/dL (31.8-35.4); Mean Corpuscular Hemoglobin 28.7 pg (27.0-31.2); Mean Corpuscular Volume 88.2 fl (80-94); Mean Platelet Volume 7.8 fl (7.4-10.4); Monocytes # 0.6 K/mm3 (0.1-1.0); Monocytes % 6.1 % (1.7-9.3); Neutrophils # 6.8 K/mm3 (1.8-7.8); Neutrophils % 67.9 % (37.0-80.0); Platelet Count 319 K/mm3 (142-424); Red Blood Count 5.26 M/mm3 (4.60-6.20); Red Cell Distribution Width 13.3 % (11.5-17.5)
[2021-08-11 22:19] LABS: Alanine Aminotransferase 33 U/L (12-78); Albumin Level 4.4 g/dl (3.5-5.0); Albumin/Globulin Ratio 1.6 (1.1-1.8); Alkaline Phosphatase 70 U/L (38-126); Aspartate Amino Transferase 30 U/L (17-59); Bilirubin,Total 0.5 mg/dl (0.2-1.3); Blood Urea Nitrogen 17 mg/dl (9-20); Calcium 9.2 mg/dl (8.4-10.2); Carbon Dioxide 28 mmol/L (22.0-30.0); Chloride 103 mmol/L (98-107); Creatinine Clearance Estimated 93 mL/min (50-200); Estimated Glomerular Filt Rate 82 ml/min (>60); GFR (African American) 99 ML/MIN (>60); Globulin 2.8 g/dL (1.3-3.2); Glucose 93 mg/dl (74-100); Sodium 138 mmol/L (136-145); Total Protein,Serum 7.2 g/dl (6.3-8.2)
[2021-08-11 22:24] LABS: C-Reactive Protein 7.1 mg/L (0-4)
[2021-08-11 22:30] VITALS: BP 129/81; PULSE 72; O2SAT 99
[2021-08-11 22:37] LABS: Procalcitonin 0.046 ng/mL (0.0-2.0)
[2021-08-11 22:54] LABS: Erythrocyte Sedimentation Rate 11 mm/hr (0-15)
[2021-08-11 23:01] VITALS: BP 132/83; PULSE 68; O2SAT 100
--- NOTE | 2021-08-11 23:43 | HMH.EDSOB ---
ED Disposition Clinical Impression: Bronchitis Disposition: Home, Self-Care Condition on Discharge: Good Instructions: DI for Acute Bronchitis Additional Instructions: fluids and use meds and see pcp for follow up Prescriptions: Azithromycin [Zithromax 250mg tab] 250 mg PO DIRECTED #6 tab Transmission Status: Pending to [facility] Referrals: Barrett Youssef APRN [Primary Care Provider] - - Critical Care Critical Care Time: No Attestation: On 08/11/21, the high probability of a clinically significant, sudden or life threatening deterioration of the following system(s) required my full and direct attention, intervention and personal management. The time I documented below is in addition to time spent performing reported procedures but includes the following listed in this critical care notation. Medical Decision Making - Medical Records Medical records reviewed: Yes: I reviewed the patient's medical records. - Dustin Inquiry Pt receiving controlled substance: No Vital Signs: 08/11/21 21:40 08/11/21 22:30 08/11/21 23:01 Temperature 98.1 F Temperature Source Oral Pulse Rate 72 68 Pulse Rate [Left] 84 Respiratory Rate 18 Blood Pressure 129/81 132/83 Blood Pressure [Right Arm] 124/85 Blood Pressure Mean [Right Arm] 98 02 Sat by Pulse Oximetry 100 99 100 Oxygen Delivery Method Room Air Room Air - Lab Data Lab results reviewed: Yes: I reviewed the patient's lab results. Lab Results 08/11/21 21:54: WBC 10.0, RBC 5.26, Hgb 15.1, Hct 46.4, MCV 88.2, MCH 28.7, MCHC 32.5, RDW 13.3, Plt Count 319, MPV 7.8, Neut % (Auto) 67.9, Lymph % (Auto) 23.4, [place] % (Auto) 6.1, Eos % (Auto) 1.6, Baso % (Auto) 1.1, Neut # (Auto) 6.8, Lymph # (Auto) 2.3, [place] # (Auto) 0.6, Eos # (Auto) 0.2, Baso # (Auto) 0.1, ESR 11 08/11/21 21:54: Sodium 138, Potassium 4.0, Chloride 103, Carbon Dioxide 28, Anion Gap 11.0, BUN 17, Creatinine 1.00, Estimated Creat Clear 93, Estimated GFR 82, Est GFR ( Amer) 99, Glucose 93, Calcium 9.2, Total Bilirubin 0.5, AST 30, ALT 33, Alkaline Phosphatase 70, C-Reactive Protein 7.1 H, Total Protein 7.2, Albumin 4.4, Globulin 2.8, Albumin/Globulin Ratio 1.6, Procalcitonin 0.046 08/11/21 21:54: SARS-CoV-2 (PCR) Not detected, Influenza A Untype (PCR) Not detected, Influenza Type B (PCR) Not detected 08/11/21 21:54: Lactate 1.0 Result diagrams: 08/11/21 21:54 08/11/21 21:54 Orders (Tests/Meds): ED MEDICATIONS Generic Name Dose Route Start Last Admin Trade Name Freq PRN Reason Stop Dose Admin Sodium Chloride 1,000 mls @ 999 mls/hr 08/11/21 22:00 08/11/21 22:17 Sod Chlor 0.9% 1000ml Bag IV 08/11/21 23:00 999 mls/hr .Q1H1M MERY Administration Discontinued Medications Generic Name Dose Route Start Last Admin Trade Name Freq PRN Reason Stop Dose Admin Ketorolac Tromethamine 30 mg 08/11/21 21:56 08/11/21 22:17 Ketorolac 30mg/Ml Vial IV 08/11/21 21:57 30 mg ONCE ONE Administration Methylprednisolone Sodium Succinate 125 mg 08/11/21 21:56 08/11/21 22:17 Methylprednisolone Sod Succ 125mg Vial IV 08/11/21 21:57 125 mg ONCE ONE Administration ORDERS Category Date Time Status Blood Culture Stat Micro 08/11/21 21:54 Received - Radiology Data #1 Image(s): Chest Image Reviewed: Yes I have reviewed radiologist's interpretation Preliminary Findings: Normal/NAD Medical Decision Narrative: possible atypical infection with stable labs and xray and neg covid-19 Resp/SOB HPI - General Chief Complaint: Shortness of Breath/Dyspnea Stated Complaint: chills and SOB Time Seen by Provider: 08/11/21 22:15 Mode of Arrival: Ambulatory Source of Information: Patient, Medical Record Limitations: No Limitations Description of Symptoms (Recalled from ER Triage Doc. by RN): pt reports short of air and chills no fever. pt states that the people in his house are sick with different things none covid and wants to know what it is -
[2021-08-11 23:53] VITALS: BP 146/80; PULSE 65; RESP 18; TEMP 36.7; O2SAT 99
== END 2021-08-12 | disposition home or self-care (01) ==
PROVIDERS: Emergency Provider Emergency Medicine; PCP Nurse Practitioner Family
DX: J20.9 Acute bronchitis, unspecified (principal); I10 Essential (primary) hypertension; F41.9 Anxiety disorder, unspecified; Z20.822 Contact with and (suspected) exposure to COVID-19
CPT/HCPCS: 71046; 80053; 83605; 84145; 85025; 85651; 86140; 87040; 96365; 96375; 99283; C9803; U0003; U0005

== ENCOUNTER → 2021-11-24 08:12 | Outpatient (CLI) | payer BC, SELFPAY ==
--- NOTE | 2021-11-24 08:17 | XR_ITS ---
FINAL REPORT CLINICAL HISTORY: knee pain FINDINGS: RIGHT KNEE 4 views of the right knee obtained. There is no acute fracture or dislocation. The joint spaces are intact. There is mild narrowing of the medial compartment joint space. There is no soft tissue abnormality. IMPRESSION: Mild narrowing of the medial compartment joint space with no acute process. Reviewed, Interpreted and Dictated by José Antonio Seymour MD Transcribed by Odessa Singh Authenticated by José Antonio Seymour MD on 11/24/2021 04:32:[address] [facility]
--- NOTE | 2021-11-24 08:17 | XR_ITS ---
FINAL REPORT CLINICAL HISTORY: knee pain FINDINGS: LEFT KNEE 4 views of the left knee obtained. There is no acute fracture or dislocation. The joint spaces are intact. Small osteochondral lesions are identified along the medial femoral condyle. There is no soft tissue abnormality. IMPRESSION: No acute process. Reviewed, Interpreted and Dictated by José Antonio Seymour MD Transcribed by Odessa Singh Authenticated by José Antonio Seymour MD on 11/24/2021 04:32:50 PM [facility]
== END ==
LOC: RAD 08:13
PROVIDERS: PCP Nurse Practitioner Family; Visit Provider Orthopaedic Surgery
DX: M25.562 Pain in left knee (principal); M25.561 Pain in right knee
CPT/HCPCS: 73564

== ENCOUNTER 2021-12-05 10:33 | Outpatient (RCR) | payer BC, SELFPAY | END 2021-12-05 11:25 | disposition home or self-care (01) | LOC: PT 10:33 | PROVIDERS: Visit Provider Orthopaedic Surgery | DX: M25.562 Pain in left knee (principal); M25.561 Pain in right knee | CPT/HCPCS: 97760 ==

== ENCOUNTER 2022-03-30 08:58 | Emergency (ER) | payer BC, SELFPAY ==
[2022-03-30 09:55] VITALS: BP 130/78; PULSE 76; RESP 20; TEMP 36.7; O2SAT 98; BMI 50.1
--- NOTE | 2022-03-30 10:13 | EXP.UTC ---
Discharge Plan Disposition Patient Disposition: Home, Self-Care Condition: Good Prescriptions Prescriptions: No Action cholecalciferol (vitamin D3) 25 mcg (1,000 unit) capsule 25 mcg PO DAILY Qty: 90 1RF lisinopril-hydrochlorothiazide 10-12.5 mg tablet See Rx Instructions .ROUTE .COMPLEX Qty: 90 3RF Dose Instruction: TAKE ONE TABLET BY MOUTH EVERY DAY FOR BLOOD PRESSURE Rx Instructions: TAKE ONE TABLET BY MOUTH EVERY DAY FOR BLOOD PRESSURE hydroxyzine pamoate [Vistaril] 25 mg capsule 25 mg PO TID PRN (Reason: itching) Qty: 60 0RF diclofenac sodium [Voltaren Arthritis Pain] 1 % gel 2 g TOPICAL QID Qty: 100 2RF Rx Instructions: apply to single elbow, wrist or hand; for hand includes palm/fingers/back of hand ergocalciferol (vitamin D2) 1,250 mcg (50,000 unit) capsule 1,250 mcg PO WEEKLY Qty: 12 2RF Referrals Follow up/Referrals: Jeromy Casanova MD [Primary Care Provider] - See instructions Activity Restrictions/Add. Instructions Additional Instructions/Restrictions: *Monitor Temp, Over the counter Motrin or Tylenol as directed/as needed Tylenol every 4 hours and Motrin every 6 hours (as long as your family doctor has told you that you can take it) for fever or pain. and straight to ER if unable to lower temp less than 101.0 after medication given *Warm salt water gargles may help to soothe the throat *Throat Lozenges? *Warm fluids like tea with honey may help to soothe the throat? *Sleep elevated *Humidifier/Vaporizer Follow up IMMEDIATELY for new or worsening symptoms or no Noticeable improvement over the next 48-72 hours. 911 for difficulty breathing or swallowing You were tested for today for COVID19 your test result should be back in the next 24-48 hours, you may may check your results on the [facility] My Health Portal Make sure to take your Vitamins Vit. C Vit D and Zinc if you can take them Clinical Impressions Clinical Impression: Viral upper respiratory infection Stand Alone Forms Stand Alone Forms: Work/School Release Discharge ED Provider: Katherine Rodrigez [facility] [place] General Stated complaint: Sore throat, bodyaches, headache Mode of Arrival: Ambulatory Source of Information: Patient Limitations: No Limitations Time Seen by Provider: 03/30/22 10:10 Description of Symptoms (Recalled from Triage Doc. by RN): PATIENT C/O BODY ACHES, SORE THROAT, SOA, AND HEADACHE SINCE WEDNESDAY HEENT Symptoms (Recalled from RN notes): Yes Resp Symptoms (Recalled from RN notes): Yes Skin Symptoms (Recalled from RN notes): No MS Symptoms (Recalled from RN notes): No Functional Status (Recalled from RN notes): WNL History of Present Illness Provider Complaint: Patient states that he started feeling bad on Wednesday States that he has been having body aches, headache, sinus congestion and chills and body aches States that his room mate is having the same symptoms so today when he wasnt feeling fell he came in to get checked Related Data Previous Rx's Medication Instructions Recorded cholecalciferol (vitamin D3) 25 25 mcg PO DAILY #90 caps 09/30/21 mcg (1,000 unit) capsule diclofenac sodium 1 % topical gel 2 g topical QID #100 grams 09/30/21 (Voltaren Arthritis Pain) hydroxyzine pamoate 25 mg capsule 25 mg PO TID PRN itching #60 caps 09/30/21 (Vistaril) lisinopril 10 See Rx Instructions .Route 09/30/21 mg-hydrochlorothiazide 12.5 mg .COMPLEX #90 tabs tablet ergocalciferol (vitamin D2) 1,250 1,250 mcg PO WEEKLY #12 caps 12/31/21 mcg (50,000 unit) capsule Allergies Allergy/AdvReac Type Severity Reaction Status Date / Time No Known Allergies Allergy Verified 01/23/22 09:38 Worker's Comp Is this a Worker's Comp case?: No PFSH PFSH Medical History (Updated 03/30/22 @ 10:26 by Katherine Rodrigez APRN) Hypertension Hypertension Social History (Updated 03/30/22 @ 10:09 by Susan Bates RN) Smoking Status: Never smoker alcohol i
[2022-03-30 10:30] VITALS: BP 130/78; PULSE 76; RESP 20; TEMP 36.7; O2SAT 98
== END 2022-03-30 10:34 | disposition home or self-care (01) ==
PROVIDERS: Emergency Provider Nurse Practitioner; PCP Emergency Medicine
DX: U07.1 COVID-19 (principal)
CPT/HCPCS: 99212; C9803; G0463; U0003; U0005

== ENCOUNTER 2022-04-21 08:05 | Emergency (ER) | payer BC, SELFPAY ==
[2022-04-21 08:23] VITALS: BP 143/77; PULSE 90; RESP 18; TEMP 36.7; O2SAT 98; BMI 48.6
--- NOTE | 2022-04-21 08:35 | EXP.UTC ---
Discharge Plan Disposition Patient Disposition: Home, Self-Care Condition: Good Prescriptions Prescriptions: New cyclobenzaprine 10 mg Tablet 10 mg PO BID PRN (Reason: Muscle Spasm) Qty: 20 0RF methylprednisolone 4 mg Tablets,Dose Pack 4 mg PO DIRECTED Qty: 21 0RF No Action cholecalciferol (vitamin D3) 25 mcg (1,000 unit) capsule 25 mcg PO DAILY Qty: 90 1RF lisinopril-hydrochlorothiazide 10-12.5 mg tablet See Rx Instructions .ROUTE .COMPLEX Qty: 90 3RF Dose Instruction: TAKE ONE TABLET BY MOUTH EVERY DAY FOR BLOOD PRESSURE Rx Instructions: TAKE ONE TABLET BY MOUTH EVERY DAY FOR BLOOD PRESSURE hydroxyzine pamoate [Vistaril] 25 mg capsule 25 mg PO TID PRN (Reason: itching) Qty: 60 0RF diclofenac sodium [Voltaren Arthritis Pain] 1 % gel 2 g TOPICAL QID Qty: 100 2RF Rx Instructions: apply to single elbow, wrist or hand; for hand includes palm/fingers/back of hand ergocalciferol (vitamin D2) 1,250 mcg (50,000 unit) capsule 1,250 mcg PO WEEKLY Qty: 12 2RF Referrals Follow up/Referrals: Barrett Youssef APRN [Primary Care Provider] - See instructions Activity Restrictions/Add. Instructions Additional Instructions/Restrictions: Go home and rest. It would be best if you rested tomorrow too. No heavy lifting. No twisting. Take the oral medications as directed. The muscle relaxer (cyclobenzaprine--Flexeril) will make you drowsy, so don't drive or operate heavy machinery after taking it. Don't start the oral steroids (medrol dose pack) until tomorrow, since you had the shots in here today. Follow up with your regular doctor. GO TO THE ER FOR ANY WORSENING SYMPTOMS OR CONCERN, ESPECIALLY BOWEL OR BLADDER ISSUES, SADDLE AREA NUMBNESS, FEVER, ETC Clinical Impressions Clinical Impression: Low back strain Stand Alone Forms Stand Alone Forms: Work/School Release Instructions Patient Instructions: DI for Low Back Pain, Cyclobenzaprine, Methylprednisolone, DI for Back Strain or Sprain Discharge ED Provider: Gigi Davis [facility] General Stated complaint: Lower back pain, spasm Mode of Arrival: Ambulatory Source of Information: Patient Limitations: No Limitations Time Seen by Provider: 04/21/22 08:35 Description of Symptoms (Recalled from Triage Doc. by RN): LOWER BACK PAIN AND SPASMS. LIFTING HEAVY ITEMS OVER THE WEEKEND HEENT Symptoms (Recalled from RN notes): No Resp Symptoms (Recalled from RN notes): No Skin Symptoms (Recalled from RN notes): No MS Symptoms (Recalled from RN notes): Yes Functional Status (Recalled from RN notes): BACK PAIN History of Present Illness Provider Complaint: He states that he has had low back pain for the past 3 days after lifting heavy boxes today. Related Data Previous Rx's Medication Instructions Recorded cholecalciferol (vitamin D3) 25 25 mcg PO DAILY #90 caps 09/30/21 mcg (1,000 unit) capsule diclofenac sodium 1 % topical gel 2 g topical QID #100 grams 09/30/21 (Voltaren Arthritis Pain) hydroxyzine pamoate 25 mg capsule 25 mg PO TID PRN itching #60 caps 09/30/21 (Vistaril) lisinopril 10 See Rx Instructions .Route 09/30/21 mg-hydrochlorothiazide 12.5 mg .COMPLEX #90 tabs tablet ergocalciferol (vitamin D2) 1,250 1,250 mcg PO WEEKLY #12 caps 12/31/21 mcg (50,000 unit) capsule cyclobenzaprine 10 mg tablet 10 mg PO BID PRN Muscle Spasm #20 04/21/22 tabs methylprednisolone 4 mg tablets in 4 mg PO DIRECTED #21 tabs 04/21/22 a dose pack Allergies Allergy/AdvReac Type Severity Reaction Status Date / Time No Known Allergies Allergy Verified 01/23/22 09:38 Worker's Comp Is this a Worker's Comp case?: No PFSH PFSH Medical History Hypertension Hypertension Social History Smoking Status: Never smoker alcohol intake: never substance use type: denies use current occupational status
[2022-04-21 09:05] VITALS: BP 143/77; PULSE 90; RESP 18; TEMP 36.7; O2SAT 97
== END 2022-04-21 09:10 | disposition home or self-care (01) ==
PROVIDERS: Emergency Provider Nurse Practitioner Family; PCP Nurse Practitioner Family
DX: S39.012A Strain of muscle, fascia and tendon of lower back, initial encounter (principal); X50.0XXA Overexertion from strenuous movement or load, initial encounter
CPT/HCPCS: 99212; G0463

== ENCOUNTER → 2022-08-30 13:02 | Outpatient (CLI) | payer BC, SELFPAY | LOC: RAD 13:03 | PROVIDERS: PCP Student in an Organized Health Care Education/Training Program; Visit Provider Student in an Organized Health Care Education/Training Program | DX: M54.50 Low back pain, unspecified (principal); S39.012A Strain of muscle, fascia and tendon of lower back, initial encounter | CPT/HCPCS: 72100 ==

== ENCOUNTER 2022-09-16 16:38 | Outpatient (RCR) | payer BC, SELFPAY ==
--- NOTE | 2022-09-16 18:03 | HMH.PTOPEV ---
PT Outpatient Evaluation Rehab PT Outpatient Evaluation Start: 09/16/22 17:33 Freq: Status: Active Protocol: Document 09/16/22 17:33 FRIDA (Rec: 09/16/22 18:03 FRIDA [id number]) E-signed By Oscar Suggs, PT Outpatient Therapy Subjective History Subjective History Patient is a 41 yo M presenting with chronic low back pain. Reports back pain started years ago but denies injury or trauma. Reports current pain is constant dull ache across lower back. He reports he has previously. Been prescribed cyclobenzaprine which helps. But be uses this prn. Also reports trial of tramadol previously which did not provide much relief. He reports pain radiates into legs at times, none currently. Also reports intermittent numbness/tingling into lower extremities. L>R. Pain is worse with bending, lifting. ROM is limited due to pain. Denies previous back surg. Denies loss of bowel/bladder. He works at [employer] in [employer]. He does not use his muscle relaxers at work. Chief Complaint Pain,Stiff,Paresthesia Symptom Type Ache,Dull,Numbness,Tingling Symptoms Aggravated By Prone,Walking Prior Functional Limitations Lifting,Housework,Sleeping, Standing,Walking,Bending/ Stooping Symptom Description Constant but Variable Level of pain today (0-10) 8 Pain scale - at its best (0-10) 2 Pain scale - at its worst (0-10) 10 Lumbopelvic Eval Posture Thoracic Spine Posture Standing Position Increased Kyphosis Lumbar Spine Posture Standing Position Decreased Lordosis Assistive device Assistive Devices None / NA Palapation tenderness bilateral Lumbar/Sacral Palpation Findings Tenderness Lumbar/Sacral Palpation Overall Comment PSIS L>R 3/4 Range of Motion Lumbar Spine Active Flexion Range of WNL Motion (degrees) Lumbar Spine Active Extension Range of 15 Motion (degrees) Left Lumbar Spine Lateral Flexion Active 16 Range of Motion (degrees) Right Lumbar Spine Lateral Flexion
== END 2022-09-16 16:40 | disposition home or self-care (01) ==
LOC: PT 16:38
PROVIDERS: PCP Student in an Organized Health Care Education/Training Program; Visit Provider Student in an Organized Health Care Education/Training Program
DX: M54.50 Low back pain, unspecified (principal)
CPT/HCPCS: 97163

== ENCOUNTER 2022-11-18 16:49 | Emergency (ER) | payer BC, SELFPAY ==
[2022-11-18 17:15] VITALS: BP 145/91; PULSE 90; RESP 18; TEMP 37; O2SAT 99; BMI 48.2
--- NOTE | 2022-11-18 17:40 | EXP.UTC ---
Discharge Plan Disposition Patient Disposition: Home, Self-Care Condition: Good Prescriptions Prescriptions: No Action cholecalciferol (vitamin D3) 25 mcg (1,000 unit) capsule 25 mcg PO DAILY Qty: 90 1RF hydroxyzine pamoate [Vistaril] 25 mg capsule 25 mg PO TID PRN (Reason: itching) Qty: 60 0RF diclofenac sodium [Voltaren Arthritis Pain] 1 % gel 2 g TOPICAL QID Qty: 100 2RF Rx Instructions: apply to single elbow, wrist or hand; for hand includes palm/fingers/back of hand tizanidine 4 mg capsule 4 mg PO HS PRN (Reason: muscle spasticity) Qty: 20 0RF lisinopril-hydrochlorothiazide 10-12.5 mg tablet See Rx Instructions .ROUTE .COMPLEX Qty: 90 2RF Dose Instruction: TAKE ONE TABLET BY MOUTH EVERY DAY FOR BLOOD PRESSURE Rx Instructions: TAKE ONE TABLET BY MOUTH EVERY DAY FOR BLOOD PRESSURE ergocalciferol (vitamin D2) [Vitamin D2] 1,250 mcg (50,000 unit) capsule See Rx Instructions .ROUTE .COMPLEX Qty: 12 1RF Dose Instruction: TAKE 1 CAPSULE BY MOUTH EVERY WEEK Rx Instructions: TAKE 1 CAPSULE BY MOUTH EVERY WEEK cyclobenzaprine 10 mg Tablet 10 mg PO BID PRN (Reason: Muscle Spasm) Qty: 20 0RF Referrals Follow up/Referrals: Jeromy Casanova MD [Primary Care Provider] - See instructions Activity Restrictions/Add. Instructions Additional Instructions/Restrictions: Make sure to follow up with your Family Doctor if you continue to have pain in your lower back Take your prescribed muscle relaxers as prescribed Return if needed Straight to ER if any life threatening symptoms or loss of control of bowel or bladder Clinical Impressions Clinical Impression: Low back strain Stand Alone Forms Stand Alone Forms: Work/School Release Instructions Patient Instructions: Low Back Pain, DI for Low Back Pain Discharge ED Provider: Katherine Rodrigez [facility] General Stated complaint: Back Pain Mode of Arrival: Ambulatory Source of Information: Patient Limitations: No Limitations Time Seen by Provider: 11/18/22 17:40 Description of Symptoms (Recalled from Triage Doc. by RN): PATIENT C/O LOWER BACK PAIN X 3 WEEKS HEENT Symptoms (Recalled from RN notes): No Resp Symptoms (Recalled from RN notes): No Skin Symptoms (Recalled from RN notes): No MS Symptoms (Recalled from RN notes): Yes Functional Status (Recalled from RN notes): WNL History of Present Illness Provider Complaint: Patient states that he has chronic back issues States that he has seen his PCP and seen the provider by Zach States that he has had xrays and recently started Physical therapy States that for the last 3 weeks on and off he has been having pain his lower back that is worse with bending States that it feels like it always does but he wasnt sure what to do Statse that he does walk alot at work and not sure if he may have Over done it States that he took his muscle relaxer yesterday and it did help some but today the OTC arthritis medication didnt help so he came in Denies new injury denies loss of control of bowel or bladder Related Data Previous Rx's Medication Instructions Recorded cholecalciferol (vitamin D3) 25 25 mcg PO DAILY #90 caps 09/30/21 mcg (1,000 unit) capsule diclofenac sodium 1 % topical gel 2 g topical QID #100 grams 09/30/21 (Voltaren Arthritis Pain) hydroxyzine pamoate 25 mg capsule 25 mg PO TID PRN itching #60 caps 09/30/21 (Vistaril) cyclobenzaprine 10 mg tablet 10 mg PO BID PRN Muscle Spasm #20 04/21/22 tabs lisinopril 10 See Rx Instructions .Route 06/09/22 mg-hydrochlorothiazide 12.5 mg .COMPLEX #90 tabs tablet tizanidine 4 mg capsule 4 mg PO HS PRN muscle spasticity 08/28/22 #20 caps ergocalciferol (vitamin D2) 1,250 See Rx Instructions .Route 11/03/22 mcg (50,000 unit) capsule (Vitamin .COMPLEX #12 caps D2) Allergies Allergy/AdvReac Type Severity Reaction Status Date / Time No Known Allergies Allergy Verified 08/28/22 08:41 Worker's Comp Is
[2022-11-18 18:12] VITALS: BP 145/91; PULSE 90; RESP 18; TEMP 37; O2SAT 99
== END 2022-11-18 18:30 | disposition home or self-care (01) ==
PROVIDERS: Emergency Provider Nurse Practitioner; PCP Emergency Medicine
DX: S39.012A Strain of muscle, fascia and tendon of lower back, initial encounter (principal); X58.XXXA Exposure to other specified factors, initial encounter
CPT/HCPCS: 99212; 99213; G0463

== ENCOUNTER → 2022-12-11 13:38 | Outpatient (CLI) | payer BC, SELFPAY ==
--- NOTE | 2022-12-11 13:38 | MR_ITS ---
FINAL REPORT TECHNIQUE: Multiplanar MR without contrast CLINICAL HISTORY: RLE radicular pain pain and numbness down right leg x 1 month COMPARISON: None FINDINGS: Sagittal images show normal vertebral height. Alignment is normal. Marrow signal pattern is unremarkable. L1-2: Unremarkable L2-3: Unremarkable L3-4: Unremarkable L4-5: Minimal annular disc bulge. Moderate facet arthropathy. Mild bilateral neural foraminal narrowing. L5-S1: Minimal annular disc bulge. Mild facet arthropathy. IMPRESSION: Mild neural foraminal narrowing at L4-5 without central canal stenosis. Reviewed, Interpreted and Dictated by Adonay Malin MD Transcribed by Shu Burk Authenticated and [facility]
== END ==
LOC: RAD 13:38
PROVIDERS: PCP Family Medicine; Visit Provider Family Medicine
DX: M54.50 Low back pain, unspecified (principal); M54.10 Radiculopathy, site unspecified
CPT/HCPCS: 72148; 76376

== ENCOUNTER 2023-02-23 17:30 | Outpatient (RCR) | payer BC, SELFPAY ==
--- NOTE | 2023-01-21 17:46 | HMH.PTOPEV ---
PT Outpatient Evaluation Rehab PT Outpatient Evaluation Start: 01/21/23 16:50 Freq: Status: Active Protocol: Document 01/21/23 17:35 FRIDA (Rec: 01/21/23 17:46 FRIDA [id number]) E-signed By Oscar Suggs, PT Outpatient Therapy Subjective History Subjective History Patient is a 42 year old male presenting to outpatient PT with reports of LBP with RLE radicular symptoms starting approx 2 months ago. Symptoms of insidious onset. Most recent imaging indicates multilevel foraminal narrowing and L 4/5 stenosis. Comorbidities include hx of HTN and elevated BMI. Chief Complaint Pain,Paresthesia Symptom Type Ache,Dull,Numbness Symptoms Relieved By Rest/Positioning,Heat,OTC Meds ,Prescription Meds Symptoms Aggravated By Standing,Physical Activity, Walking,Lifting Prior Functional Limitations None Current Functional Limitations Reaching,Lifting,Housework, Sleeping,Standing,Walking, Bending/Stooping Symptom Description Intermittent Level of pain today (0-10) 4 Pain scale - at its best (0-10) 0 Pain scale - at its worst (0-10) 9 Lumbopelvic Eval Posture Thoracic Spine Posture Standing Position Increased Kyphosis Lumbar Spine Posture Standing Position Decreased Lordosis Assistive device Assistive Devices None / NA Palapation tenderness right buttock tenderness Yes: piriformis mm 3/4 Accessory Movement L4 bilateral L5 bilateral Range of Motion Lumbar Spine Active Flexion Range of WNL Motion (degrees) Lumbar Spine Active Extension Range of 18 Motion (degrees) Left Lumbar Spine Lateral Flexion Active 13 Range of Motion (degrees) Right Lumbar Spine Lateral Flexion 15 Active Range of Motion (degrees) Lumbar Spine ROM Limitations Soft Tissue Tightness,Bony Restriction Manual Muscle Test Bilateral Knee Extension Strength Grade 5 Normal Knee Flexion Strength Grade 5 Normal Hip Flexion Strength Grade 5 Normal Extensor Hallucis Longus Strength Grade 5 Normal Ankle Dorsiflexion Strength Grade 5 Normal Gastronemius/Soleus Strength Grade 5 Normal Altered Sensation Right LE Dermatome Level L2,L3 Comment NT Special Tests Lumbar Spine Screen Positive Hip Mansoor (EVELINE) Test
== END 2023-02-23 18:25 | disposition home or self-care (01) ==
LOC: PT 17:30
PROVIDERS: PCP Family Medicine; Visit Provider Family Medicine
DX: M54.50 Low back pain, unspecified (principal); M54.31 Sciatica, right side
CPT/HCPCS: 97110; 97163; 97530

== ENCOUNTER → 2023-03-26 10:57 | Outpatient (CLI) | payer BC, SELFPAY ==
[2023-03-26 11:56] LABS: Basophils % 0.4 % (0.1-2.0); Eosinophils # 0.2 K/mm3 (0.0-0.4); Hematocrit 45.4 % (42.0-52.0); Hemoglobin 14.9 g/dL (14.1-18.0); Lymphocytes % 22.6 % (10-50); Mean Corpuscular HGB Conc 32.7 g/dL (31.8-35.4); Mean Corpuscular Hemoglobin 26.7 pg (27.0-31.2); Mean Corpuscular Volume 81.7 fl (80-94); Mean Platelet Volume 7.4 fl (7.4-10.4); Monocytes # 0.5 K/mm3 (0.1-1.0); Neutrophils % 69.2 % (37.0-80.0); Platelet Count 320 K/mm3 (142-424); Red Blood Count 5.56 M/mm3 (4.60-6.20); Red Cell Distribution Width 14.2 % (11.5-17.5); White Blood Count 8.7 K/mm3 (4.8-10.8)
[2023-03-26 12:08] LABS: Hemoglobin A1C 5.4 % (4.0-6.0)
[2023-03-26 12:30] LABS: Alanine Aminotransferase 24 U/L (12-78); Albumin Level 3.9 g/dl (3.5-5.0); Albumin/Globulin Ratio 1.3 (1.1-1.8); Alkaline Phosphatase 91 U/L (38-126); Anion Gap 12.6 mEq/L (5-15); Aspartate Amino Transferase 25 U/L (17-59); Bilirubin,Total 0.5 mg/dl (0.2-1.3); Blood Urea Nitrogen 18 mg/dl (9-20); Carbon Dioxide 29 mmol/L (22.0-30.0); Chloride 102 mmol/L (98-107); Chol/HDL Ratio 4.8 (1-3.5); Cholesterol 187 mg/dl (140-200); Estimated Glomerular Filt Rate 81 ml/min (>60); GFR (African American) 98 ML/MIN (>60); Glucose 105 mg/dl (74-100); HDL Cholesterol 39 mg/dl (40-60); Potassium 4.6 mmoL/L (3.5-5.1); Sodium 139 mmol/L (136-145); Total Protein,Serum 6.9 g/dl (6.3-8.2); Triglycerides 122 mg/dl (30-150); VLDL Cholesterol 24 mg/dL (0-40)
[2023-03-26 12:41] LABS: Direct LDL Cholesterol 113.23 mg/dL (100-129)
[2023-03-26 13:01] LABS: Thyroid Stimulating Hormone 0.55 uIU/mL (0.465-4.68)
== END ==
PROVIDERS: PCP Family Medicine; Visit Provider Family Medicine
DX: E55.9 Vitamin D deficiency, unspecified (principal); F41.8 Other specified anxiety disorders; Z79.899 Other long term (current) drug therapy
CPT/HCPCS: 36415; 80053; 80061; 83036; 84443; 85025

== ENCOUNTER 2023-05-20 10:56 | Emergency (ER) | payer BC, SELFPAY ==
[2023-05-20] VITALS (8 sets, daily range): BP systolic 126–145; BP diastolic 55–89; PULSE 83–94; RESP 15–18; TEMP 36.6–36.7; O2SAT 96–99; BMI 57.3
--- NOTE | 2023-05-20 10:54 | ECG_ITS ---
APPROVED REPORT Exam: Resting ECG HR:86 bpm ECG Measurements Heart Rate 86 AXES MO 165 P 21 QRSd 97 QRS 60 QT 344 T 54 QTc 388 Conclusion SINUS RHYTHM NORMAL ECG UNCONFIRMED REPORT Electronically signed by : Del Dimas MD 05/21/2023 14:29:54
--- NOTE | 2023-05-20 11:16 | XR_ITS ---
FINAL REPORT TECHNIQUE: Single view chest CLINICAL HISTORY: dyspnea x 1 day non smoker COMPARISON: 01/01/2021 FINDINGS: A single view of the chest was obtained. The heart and mediastinum are within normal limits. The lungs are clear. There is no pneumothorax. Osseous structures are unremarkable. IMPRESSION: No acute cardiopulmonary process. Reviewed, Interpreted and Dictated by Jesús Mcdowell III, MD Transcribed by Jennifer Stern Authenticated and [facility]
--- NOTE | 2023-05-20 11:18 | HMH.EDGENADL ---
Discharge Plan Disposition Patient Disposition: Home, Self-Care Prescriptions Prescriptions: No Action cholecalciferol (vitamin D3) 25 mcg (1,000 unit) capsule 25 mcg PO DAILY Qty: 90 1RF hydroxyzine pamoate [Vistaril] 25 mg capsule 25 mg PO TID PRN (Reason: itching) Qty: 60 0RF diclofenac sodium [Voltaren Arthritis Pain] 1 % gel 2 g TOPICAL QID Qty: 100 2RF Rx Instructions: apply to single elbow, wrist or hand; for hand includes palm/fingers/back of hand lisinopril-hydrochlorothiazide 20-12.5 mg tablet 1 tab PO DAILY Qty: 90 3RF Rx Instructions: dose increase tizanidine 4 mg capsule 4 mg PO HS PRN (Reason: muscle spasticity) Qty: 20 0RF ergocalciferol (vitamin D2) [Vitamin D2] 1,250 mcg (50,000 unit) capsule See Rx Instructions .ROUTE .COMPLEX Qty: 12 1RF Dose Instruction: TAKE 1 CAPSULE BY MOUTH EVERY WEEK Rx Instructions: TAKE 1 CAPSULE BY MOUTH EVERY WEEK metformin 500 mg tablet 500 mg PO BID Qty: 180 3RF Referrals Follow up/Referrals: Clinton Joseph MD [Staff Physician] - See instructions Activity Restrictions/Add. Instructions Additional Instructions/Restrictions: Please follow-up with Dr. Joseph as soon as possible and return with any worsening symptoms. Clinical Impressions Clinical Impression: Chest pain Discharge ED Provider: Davis Farley General Adult HPI General Chief complaint: Chest Pain Stated complaint: chest pain Time Seen by Provider: 05/20/23 11:12 Mode of Arrival: Ambulatory Source of Information: Patient Limitations: No Limitations Description of Symptoms (Recalled from ER Triage Doc. by RN): PT REPORTS INTERMITTENT CHEST PAIN THAT STARTED YESTERDAY, RESOLVED. PAIN STARTED AGAIN ABOUT 0600, REPORTS MIDSTERNAL PAIN THAT RADIATED TO LEFT SIDE OF CHEST. PT DENIES SHORTNESS OF BREATH BUT FELT DIAPHORETIC. REPORTS NAUSEA. HAS HAD SIMILAR EPISODE IN THE PAST. History of Present Illness HPI narrative: Patient is a 38-year-old male here with chest discomfort and some nausea. States he had some chest discomfort yesterday which resolved but his chest pain returned today around 6 AM has been ongoing for the last 5 hours and constant located on the substernal and left anterior chest without any radiation he does have some nausea associated with this no shortness of breath no cough fevers chills etc. He does not have a history of coronary disease had a stress test which was normal within the last few years. Has never had a left heart cath. He did state that his symptoms are a little bit worse with exertion and improved with relaxing. Currently states his symptoms are very mild. Related Data Previous Rx's Medication Instructions Recorded cholecalciferol (vitamin D3) 25 25 mcg PO DAILY #90 caps 09/30/21 mcg (1,000 unit) capsule diclofenac sodium 1 % topical gel 2 g topical QID #100 grams 09/30/21 (Voltaren Arthritis Pain) hydroxyzine pamoate 25 mg capsule 25 mg PO TID PRN itching #60 caps 09/30/21 (Vistaril) ergocalciferol (vitamin D2) 1,250 See Rx Instructions .Route 11/03/22 mcg (50,000 unit) capsule (Vitamin .COMPLEX #12 caps D2) lisinopril 20 1 tab PO DAILY #90 tabs 01/21/23 mg-hydrochlorothiazide 12.5 mg tablet metformin 500 mg tablet 500 mg PO BID #180 tabs 04/07/23 tizanidine 4 mg capsule 4 mg PO HS PRN muscle spasticity 04/29/23 #20 caps Allergies Allergy/AdvReac Type Severity Reaction Status Date / Time No Known Allergies Allergy Verified 04/29/23 09:06 [facility] Disclaimer: The information contained in this section may have been updated after the patient was seen, as this information can be updated by other users. Medical History Hypertension Hypertension Social History Smoking Status: Never smoker alcohol intake: never substance use type: denies use current occupatio
[2023-05-20 11:24] LABS: Chloride 103 mmol/L (98-107); Potassium 4.5 mmoL/L (3.5-5.1); Sodium 138 mmol/L (136-145)
[2023-05-20 11:27] LABS: Alanine Aminotransferase 31 U/L (12-78); Albumin Level 4.4 g/dl (3.5-5.0); Albumin/Globulin Ratio 1.3 (1.1-1.8); Alkaline Phosphatase 83 U/L (38-126); Anion Gap 11.5 mEq/L (5-15); Aspartate Amino Transferase 34 U/L (17-59); Bilirubin,Total 0.3 mg/dl (0.2-1.3); Blood Urea Nitrogen 25 mg/dl (9-20); Carbon Dioxide 28 mmol/L (22.0-30.0); Creatinine Clearance Estimated 101 mL/min (50-200); Estimated Glomerular Filt Rate 92 ml/min (>60); GFR (African American) 111 ML/MIN (>60); Globulin 3.5 g/dL (1.3-3.2); Glucose 113 mg/dl (74-100); Lipase 66 U/L (23-300); Total Protein,Serum 7.9 g/dl (6.3-8.2)
--- NOTE | 2023-05-20 11:28 | PC.NURSE ---
XR AT BEDSIDE
[2023-05-20 11:31] LABS: Basophils # 0.1 K/mm3 (0-0.2); Basophils % 0.5 % (0.1-2.0); Eosinophils # 0.2 K/mm3 (0.0-0.4); Eosinophils % 1.4 % (0.1-12.0); Hematocrit 42.3 % (42.0-52.0); Hemoglobin 14.5 g/dL (14.1-18.0); Lymphocytes % 17.8 % (10-50); Mean Corpuscular HGB Conc 34.2 g/dL (31.8-35.4); Mean Corpuscular Hemoglobin 28.1 pg (27.0-31.2); Mean Corpuscular Volume 82.3 fl (80-94); Mean Platelet Volume 7.4 fl (7.4-10.4); Monocytes # 0.6 K/mm3 (0.1-1.0); Monocytes % 4.9 % (1.7-9.3); Neutrophils # 8.4 K/mm3 (1.8-7.8); Neutrophils % 75.3 % (37.0-80.0); Platelet Count 324 K/mm3 (142-424); Red Blood Count 5.14 M/mm3 (4.60-6.20); Red Cell Distribution Width 14.4 % (11.5-17.5); White Blood Count 11.2 K/mm3 (4.8-10.8)
[2023-05-20 11:40] LABS: Troponin I < 0.01 ng/ml (0.00-0.034)
--- NOTE | 2023-05-20 13:31 | PC.NURSE ---
ROUNDED ON PT , WARM BLANKET PROVIDED. PT UPDATED ON POC. CALL LIGHT WITHIN REACH. REPEAT TROP SENT
[2023-05-20 14:08] LABS: Troponin I < 0.01 ng/ml (0.00-0.034)
== END 2023-05-20 14:25 | disposition home or self-care (01) ==
PROVIDERS: Emergency Provider Student in an Organized Health Care Education/Training Program
DX: R07.89 Other chest pain (principal); I10 Essential (primary) hypertension
CPT/HCPCS: 71045; 80053; 83690; 84484; 85025; 93005; 99284

== ENCOUNTER → 2023-05-27 11:05 | Outpatient (CLI) | payer BC, SELFPAY ==
--- NOTE | 2023-05-27 11:05 | NM_ITS ---
APPROVED REPORT Exam: Nuclear Stress Test Indication: chest pain..soa..palpitations..syncope..fatigue Patient Location: Outpatient Stress Tech: Oumou Pace ND Tech:SOLIS Shine RT(R)(N) Ht: 5 ft 8 in Wt: 380 lbs HR: 90 bpm BP: 129/72 mmHg BSA: 2.68 m2 TID: 1.06 BMI: 57.7 History: chest pain..soa..palpitations..syncope..fatigue Procedure: Patient received 0.4 mg of intravenous Lexiscan, resting heart rate 90 bpm, resting blood pressure 129/72 mmHg, with Lexiscan maximum heart rate achieved was 115 bpm which is 85 % of the maximum predicted heart rate and blood pressure was 133/74 mmHg. With Lexiscan, patient denied any complaint of chest pain. The patient was not able to lay on his abdomen for prone images. Cardiac Stress and Resting SPECT Images: Cardiac Stress and Resting SPECT images were obtained using technetium 99m Myoview 31.7 mCi stress and 10.46 mCi at rest. The patient could not lie on his abdomen. Therefore, prone stress imaging could not be performed. This may affect the diagnostic interpretation of the study findings. Resting and stress imaging in supine position demonstrate a large sized, moderate, predominantly reversible perfusion defect in the anterior and anterolateral LV gandara extending towards the LV apex. There is also large sized, severe, partially reversible perfusion defect in the inferior and inferoseptal LV gandara. Gated imaging demonstrates low-normal global LV systolic function. There is severe hypokinesis of the septal and inferoseptal LV gandara, as well as moderate hypokinesis of the anterior LV wall. LVEF is calculated at 52%. Conclusion: Large sized, moderate, predominantly reversible perfusion defect in the anterior and anterolateral LV gandara extending towards the LV apex. There is also large sized, severe, partially reversible perfusion defect in the inferior and inferoseptal LV gandara. Findings are suggestive of reversible ischemia. Gated imaging demonstrates low-normal global LV systolic function. There is severe hypokinesis of the septal and inferoseptal LV gandara, as well as moderate hypokinesis of the anterior LV wall. LVEF is calculated at 52%. Electronically signed by : Dariana Ceballos MD 06/02/2023 13:12:15
--- NOTE | 2023-05-27 13:01 | CA_ITS ---
APPROVED REPORT EXAM: Comprehensive 2D, Doppler, and color-flow Echocardiogram Containers Sales Representative: Marley Moreland RVT Ht: 5 ft 8 in Wt: 380lbs BSA: 2.68 BP: 140/78 mmHg Indications: CP,OBESITY,HTN TDS-PT BODY HABITUS 2D Dimensions LVOT 2.68 cm (M/F) 1.5-2.5 LA Volume 60.90 mL LA Volume Index 22.64 mL/m2 (M/F) 16-34 M-Mode Dimensions RVDd 3.24 cm (0.9-2.6) LA Diam 4.48 cm (1.9-4.0) LVDd 3.98 cm (3.5-5.7) Ao Diam 3.73 cm (2.0-3.7) LVDs 2.70 cm (3.5-5.7) IVSd 1.57 cm (0.6-1.1) PWd 0.98 cm (0.6-1.1) EF (Teich) 61.00% FS 32.20% EDV (Teich) 69.20 mL TAPSE 2.74 (<1.7) ESV (Teich) 27.00 mL LV Diastology E Decel Time 150.00 (160-240 msec) E/A Ratio 1.5 MED E' 8.50 (< 7 cm/sec) E'/MED E' Ratio 9.75 (>14) LAT E' 13.70 (<10 cm/sec) E/LAT E' Ratio 6.05 (>14) Aortic Valve AO Peak GR. 4.40 mmHg Mitral Valve MV E Max Gerald. 83.00 (40-130 cm/s) MV A Velocity 57.00 (40-130 cm/s) E/A Ratio 1.45 MV Decel. Time 150.00 (160-240 ms) MV PHT 44.00 ms Pulmonary Valve PV Peak Velocity 96.00 (50-150 cm/s) Tricuspid Valve TR P. Velocity 249.00 cm/s RAP Estimate 10.00 mmHg RVSP 34.80 mmHg Left Ventricle The left ventricle is normal size. The left ventricular systolic function is normal. The left ventricular ejection fraction is within the normal range. There is normal left ventricular wall thickness. There is normal LV segmental wall motion. The left ventricular diastolic function is normal. LVEF is 55-60%. Right Ventricle The right ventricle is normal size. The right ventricular systolic function is normal. Atria The left atrium size is normal. The right atrium size is normal. There is no Doppler evidence of interatrial shunt. Aortic Valve The aortic valve opens well. There is no aortic valvular stenosis. No aortic regurgitation is present. Mitral Valve The mitral valve is normal in structure. No evidence of mitral valve stenosis. Trace mitral regurgitation. Tricuspid Valve The tricuspid valve leaflets are thin and pliable. Trace tricuspid regurgitation. RVSP is normal. Pulmonic Valve The pulmonary valve is normal in structure. Trace pulmonic regurgitation. Great Vessels The aortic root is normal in size. The ascending aorta is normal in size. IVC is normal in size and collapses >50% with inspiration. Pericardium There is no pericardial effusion. Other Information Study Quality: Technically Difficult Conclusion Technically difficult study due to poor accoustic windows. Normal biventricular systolic function. No significant valvular stenosis or regurgitation. Electronically signed by : Dariana Ceballos MD 05/29/2023 21:57:34
--- NOTE | 2023-05-27 13:40 | CA_ITS ---
APPROVED REPORT Exam: Pharmacologic Technologist: Oumou Zaldivar, Ht: 5 ft 8 in Wt: 380 lbs BSA: 2.68 m2 HR: 82 bpm BP: 129/72 mmHg Rhythm: NSR Indications: CP, SOA Medical History Medications: Metformin,,,,, Vit D3,,,,, Diclofenac,,,,, Tizanidine,,,,, Hydroxyzine,,,,, Vit D2,,,,, Stress Test Details Test: LEXISCAN Reason for pharmacologic stress test: physical limitation. HR Resting HR: 90 bpm Max Heart Rate (APMHR): 176 bpm Max HR Achieved: 115 bpm Target HR (85% APMHR): 150 bpm % of APMHR: 65 Recovery HR: 98 bpm BP Resting BP: 129.0/72.0 mmHg Max BP: 133.0/74.0 mmHg Recovery BP: 126.0/69.0 mmHg ECG Resting ECG: NSR, PVC's Stress ECG: No significant ST changes Arrhythmia: PVCs Clinical Exercise duration: 04:26 min Highest Stage Achieved: Stress ECG Conclusion Symptoms: Mild SOA. No CP. Arrhythmias/Ectopy: Occasional PVC. ST-T Changes: No significant ST changes. Conclusion: Unremarkable Lexiscan stress. Myoview images reported separately. Test Summary REST . . . . . . . Resting REST 03:43 . . 90 . 129/ 72 . . Stage 1 01:00 . . 111 . . . . Stage 2 01:00 . . 109 . 122/ 72 . . Stage 3 01:00 . . 104 . 121/ 74 . . Stage 4 01:00 . . 101 . 113/ 72 . . Stage 4 01:26 . . 104 . 113/ 72 . Stop exercise at 04:26 RECOVERY 01:00 . . 98 . . . . RECOVERY 02:00 . . 105 . 133/ 74 . . RECOVERY 03:00 . . 98 . 133/ 74 . . RECOVERY 03:30 . . 93 . 126/ 69 . . Electronically signed by : Dariana Ceballos MD 06/02/2023 13:04:15
== END ==
LOC: RAD 11:05
PROVIDERS: PCP Family Medicine; Visit Provider Physician Assistant
DX: R07.9 Chest pain, unspecified (principal); G47.33 Obstructive sleep apnea (adult) (pediatric); E66.01 Morbid (severe) obesity due to excess calories; Z68.43 Body mass index [BMI] 50.0-59.9, adult
CPT/HCPCS: 78452; 93017; 93306; A9502; J2785

== ENCOUNTER 2023-06-10 07:50 | Day surgery (SDC) | payer BC, SELFPAY ==
[2023-06-10] VITALS (12 sets, daily range): BP systolic 106–156; BP diastolic 61–75; PULSE 67–87; RESP 16–20; TEMP 36.7–36.8; O2SAT 93–100; BMI 57.4
--- NOTE | 2023-06-10 07:07 | IR_ITS ---
APPROVED REPORT Patient Location: Outpatient Surgical Orderly: SOLIS Hightower RT (R) PROCEDURES Left heart catheterization Left ventriculogram Selective coronary angiogram INDICATION Abnormal Myoview, Angina pectoris, Informed consent was obtained prior to the procedure. COMPLICATIONS None Estimated Blood Loss: Less than 10 mls TECHNIQUE One percent lidocaine used to anesthetize the right anterior aspect of the wrist. The right radial artery was accessed via the Seldinger technique. A 6 [place] sheath was placed in the right radial artery. 2.5 mg of Verapamil, 800 mcg of nitroglycerin, 1mg Lidocaine and 5000 U Heparin were given through the arterial sheath. The papa catheter was also used to perform left heart catheterization, left ventriculogram and selective coronary angiogram. At the end of the procedure the sheath was removed good hemostasis was achieved using Traclet band, patient was transferred to the postop holding area in stable condition. ANGIOGRAPHIC RESULTS The left main artery Normal The left anterior descending artery Large caliber throughout and normal The circumflex artery Normal The right coronary artery Dominant normal The GRULLON ventriculogram reveals Normal 65% The left ventricular end-diastolic pressure Elevated at 20 mmHg IMPRESSION Normal coronary arteries Normal ejection fraction Elevated LVEDP PLAN 1. Recommend sleep study 2. Weight loss exercise 3. Further evaluation of noncardiac symptoms Electronically signed by : Clinton Joseph MD 06/10/2023 10:34:04
[2023-06-10 08:20] LABS: Basophils # 0.1 K/mm3 (0-0.2); Basophils % 0.5 % (0.1-2.0); Eosinophils # 0.3 K/mm3 (0.0-0.4); Eosinophils % 2.4 % (0.1-12.0); Hematocrit 39.6 % (42.0-52.0); Hemoglobin 13.6 g/dL (14.1-18.0); Lymphocytes # 2.2 K/mm3 (0.7-4.5); Mean Corpuscular HGB Conc 34.3 g/dL (31.8-35.4); Mean Corpuscular Hemoglobin 27.9 pg (27.0-31.2); Mean Corpuscular Volume 81.1 fl (80-94); Mean Platelet Volume 7.3 fl (7.4-10.4); Monocytes # 0.6 K/mm3 (0.1-1.0); Monocytes % 5.3 % (1.7-9.3); Neutrophils # 7.4 K/mm3 (1.8-7.8); Neutrophils % 70.8 % (37.0-80.0); Platelet Count 308 K/mm3 (142-424); Red Blood Count 4.88 M/mm3 (4.60-6.20); Red Cell Distribution Width 14.4 % (11.5-17.5); White Blood Count 10.5 K/mm3 (4.8-10.8)
[2023-06-10 08:27] LABS: Anion Gap 12.9 mEq/L (5-15); Blood Urea Nitrogen 24 mg/dl (9-20); Carbon Dioxide 26 mmol/L (22.0-30.0); Chloride 103 mmol/L (98-107); Creatinine Clearance Estimated 91 mL/min (50-200); Estimated Glomerular Filt Rate 81 ml/min (>60); GFR (African American) 98 ML/MIN (>60); Glucose 117 mg/dl (74-100); Potassium 3.9 mmoL/L (3.5-5.1); Sodium 138 mmol/L (136-145)
== END 2023-06-10 13:15 | disposition home or self-care (01) ==
LOC: CATHLAB 07:51
PROVIDERS: PCP Family Medicine; Visit Provider Internal Medicine
DX: R07.9 Chest pain, unspecified (principal); I10 Essential (primary) hypertension; R94.30 Abnormal result of cardiovascular function study, unspecified; E66.01 Morbid (severe) obesity due to excess calories; Z68.43 Body mass index [BMI] 50.0-59.9, adult; Z79.899 Other long term (current) drug therapy; I20.89 Other forms of angina pectoris
CPT/HCPCS: 80048; 85025; 93458; 99152; C1725; C1760; C1769; J1644; Q9967

== ENCOUNTER 2023-11-15 09:04 | Emergency (ER) | payer BC, SELFPAY ==
[2023-11-15 09:10] VITALS: BP 130/77; PULSE 75; RESP 18; TEMP 36.6; O2SAT 95; BMI 61.0
--- NOTE | 2023-11-15 09:32 | ED_ITS ---
Discharge Plan Disposition Patient Disposition: Home, Self-Care Condition: Good Prescriptions Prescriptions: New azithromycin [Zithromax] 250 mg tablet 250 mg PO UD DOSE PK Qty: 6 0RF Rx Instructions: Take two (2) tablets today, then one (1) tablet days #2 thru #5 benzonatate 100 mg capsule 100 mg PO TIDP PRN (Reason: Cough) Qty: 30 0RF methylprednisolone 4 mg Tablets,Dose Pack 4 mg PO DIRECTED 6 Days Qty: 21 0RF Rx Instructions: Take 1 pack as directed for 6 days No Action cholecalciferol (vitamin D3) 25 mcg (1,000 unit) capsule 25 mcg PO DAILY Qty: 90 1RF diclofenac sodium [Voltaren Arthritis Pain] 1 % gel 2 g TOPICAL QID Qty: 100 2RF Rx Instructions: apply to single elbow, wrist or hand; for hand includes palm/fingers/back of hand hydroxyzine pamoate [Vistaril] 25 mg capsule 25 mg PO TID PRN (Reason: itching) ergocalciferol (vitamin D2) [Vitamin D2] 1,250 mcg (50,000 unit) capsule See Rx Instructions .ROUTE .COMPLEX Qty: 12 0RF Dose Instruction: TAKE 1 CAPSULE BY MOUTH EVERY WEEK Rx Instructions: TAKE 1 CAPSULE BY MOUTH EVERY WEEK omeprazole 40 mg capsule,delayed release(DR/EC) 40 mg PO DAILY Qty: 30 2RF tizanidine 4 mg capsule 4 mg PO HS PRN (Reason: muscle spasticity) Qty: 90 0RF metoprolol succinate [Toprol XL] 25 mg tablet extended release 24 hr 25 mg PO DAILY Qty: 30 5RF metformin 500 mg tablet 500 mg PO BID Qty: 180 3RF lisinopril-hydrochlorothiazide 20-12.5 mg tablet See Rx Instructions .ROUTE .COMPLEX Qty: 90 2RF Dose Instruction: TAKE 1 TABLET BY MOUTH ONCE DAILY Rx Instructions: TAKE 1 TABLET BY MOUTH ONCE DAILY Referrals Follow up/Referrals: Maxim Blankenship MD [Primary Care Provider] - See instructions Activity Restrictions/Add. Instructions Additional Instructions/Restrictions: Drink plenty of fluids. Take tylenol or ibuprofen for pain or fever. Take the medications as directed. Follow up with your regular doctor. GO TO THE ER FOR ANY WORSENING SYMPTOMS Clinical Impressions Clinical Impression: Sinusitis, Pharyngitis Stand Alone Forms Stand Alone Forms: Work/School Release Instructions Patient Instructions: DI for Pharyngitis/Tonsillopharyngitis -- Adult, DI for Sinusitis Discharge ED Provider: Gigi Davis [facility] General Stated complaint: sore throat, congestion, stuffy nose Mode of Arrival: Ambulatory Source of Information: Patient and Parent(s) Limitations: No Limitations Time Seen by Provider: 11/15/23 09:32 HEENT Symptoms (Recalled from RN notes): No Resp Symptoms (Recalled from RN notes): No Skin Symptoms (Recalled from RN notes): No MS Symptoms (Recalled from RN notes): Yes Functional Status (Recalled from RN notes): n/a History of Present Illness Provider Complaint: He states that for the past 3 days he has had sore throat, sinus congestion and a cough. Related Data Home Medications Medication Instructions Recorded Confirmed hydroxyzine pamoate 25 mg capsule 25 mg PO TID PRN itching 08/19/23 11/15/23 (Vistaril) Previous Rx's Medication Instructions Recorded cholecalciferol (vitamin D3) 25 25 mcg PO DAILY #90 caps 09/30/21 mcg (1,000 unit) capsule diclofenac sodium 1 % topical gel 2 g topical QID #100 grams 09/30/21 (Voltaren Arthritis Pain) metformin 500 mg tablet 500 mg PO BID #180 tabs 04/07/23 metoprolol succinate 25 mg 25 mg PO DAILY #30 tabs 05/24/23 tablet,extended release 24 hr (Toprol XL) ergocalciferol (vitamin D2) 1,250 See Rx Instructions .Route 06/23/23 mcg (50,000 unit) capsule (Vitamin .COMPLEX #12 caps D2) omeprazole 40 mg capsule,delayed 40 mg PO DAILY #30 caps 06/23/23 release tizanidine 4 mg capsule 4 mg PO HS PRN muscle spasticity 06/23/23 #90 caps lisinopril 20 See Rx Instructions .Route 09/06/23 mg-hydrochlorothiazide 12.5 mg .COMPLEX #90 tabs tablet azithromycin 250 mg tablet 250 mg PO UD DOSE PK #6 tabs 11/15/23 (Zithromax) benzonatate 100 mg capsule 100 mg PO TIDP PRN Cough #30 caps 11/15/23 methylprednisolone 4 mg tablets in 4 mg PO DIRECTED 6 days #21 tabs 11/15/23 a dose pack Allergies Allergy/AdvReac Type Severity Reaction Status Date / Time No Known Allergies Allergy Verified 11/15/23 09:35 Worker's Comp Is this a Worker's Comp case?: No [facility] Disclaimer: The information contained in this section may have been updated after the patient was seen, as this information can be updated by other users. Medical History Abnormal result of cardiovascular function study Hypertension Hypertension Family History Other No significant family history Social History Smoking Status: Never smoker alcohol intake: never substance use type: denies use current occupational status: employed Travel in the last 8 weeks: None household members: family housing: house ROS Obtained: Yes All systems reviewed & no additional complaints except as documented Constitutional Constitutional: Reports poor appetite Eyes Eyes: Reports system reviewed and no additional complaints, except as documented ENT Ears, Nose, Mouth, and Throat: Reports as per HPI Cardiovascular Cardiovascular: Reports system reviewed and no additional complaints, except as documented and Denies chest pain Respiratory Respiratory: Denies shortness of breath, Denies chest congestion, Reports cough, Denies stridor and Denies wheezing Gastrointestinal Gastrointestingal: Reports system reviewed and no additional complaints, except as documented; Denies abdominal pain, diarrhea or vomiting Musculoskeletal Musculoskeletal: Reports system reviewed and no additional complaints, except as documented and Denies arthralgias Integumentary/Breasts Skin/Breast: Reports system reviewed and no additional complaints, except as documented and Denies rash Neurologic Neurologic: Denies paresthesias Allergic/Immunologic Allergic/Immunologic: Denies wheezing Physical Exam General General appearance: alert and in no apparent distress Head Head exam: atraumatic, normocephalic and normal inspection Eye Eye exam: Present normal appearance, PERRL and EOMI ENT ENT exam: Present mucous membranes moist and normal external ear exam Expanded ENT Exam TM/Canal exam: Bilateral TM: erythema and bulging Nose exam: Absent sinus tenderness Mouth exam: Present normal external inspection; Absent drooling Teeth exam: Present normal inspection Throat exam: Present tonsillar erythema, tonsillomegaly and tonsillar exudate Neck Neck exam: Present normal inspection, full ROM and trachea midline; Absent tenderness, meningismus or lymphadenopathy Chest Chest inspection: Present normal inspection and symmetric chest wall rise; Absent tenderness Respiratory Respiratory exam: Present normal lung sounds bilaterally; Absent respiratory distress, wheezes, stridor or accessory muscle use Cardiovascular Cardiovascular exam: Present regular rate and normal rhythm; Absent systolic murmur or diastolic murmur Abdominal Exam Abdominal exam: Present soft and normal bowel sounds; Absent distention, tenderness, guarding, rebound or rigidity Extremities Exam Extremities exam: Present normal inspection and normal capillary refill; Absent calf tenderness Back Exam Back exam: Present normal inspection and full ROM; Absent tenderness, CVA tenderness (R) or CVA tenderness (L) Neurological Exam Neurological exam: Present alert, oriented X3 and CN II-XII intact Psychiatric Psychiatric exam: Present normal affect and normal mood Skin Skin exam: Present warm, dry, intact and normal color Medical Decision Making Medical Records Medical records reviewed: No I reviewed the patient's medical records. Dustin Inquiry Pt receiving controlled substance: No Vital Signs: 11/15/23 09:10 Temperature 98.8 F Temperature Source Oral Pulse Rate [Right Radial] 71 Respiratory Rate 19 02 Sat by Pulse Oximetry 99 Oxygen Delivery Method Room Air Lab Data Lab results reviewed: Yes I reviewed the patient's lab results.
--- NOTE | 2023-11-15 10:25 | PC.NURSE ---
Sent covid swab to lab via tube system
[2023-11-15 10:26] VITALS: BP 130/77; PULSE 75; RESP 18; TEMP 36.6; O2SAT 95
== END 2023-11-15 10:26 | disposition home or self-care (01) ==
PROVIDERS: Emergency Provider Nurse Practitioner Family; PCP Family Medicine
DX: J01.90 Acute sinusitis, unspecified (principal); J02.9 Acute pharyngitis, unspecified; R05.9 Cough, unspecified; R09.81 Nasal congestion; I10 Essential (primary) hypertension
CPT/HCPCS: 87635; 99212; 99214; G0463

== ENCOUNTER 2024-01-07 16:44 | Emergency (ER) | payer SELFPAY ==
[2024-01-07 17:25] VITALS: BP 142/91; PULSE 103; RESP 18; TEMP 36.7; O2SAT 96; BMI 62.3
--- NOTE | 2024-01-07 17:38 | XR_ITS ---
PROCEDURE INFORMATION: Exam: XR Left Knee Exam date and time: 01/07/2024 5:43 PM Age: 43 years old Clinical indication: Pain; Knee; Left; Additional info: Hurt at work TECHNIQUE: Imaging protocol: Radiologic exam of the left knee. Views: 3 views. COMPARISON: CR XR KNEE LT 4V 11/24/2021 8:18 AM FINDINGS: Bones/joints: No acute fracture or malalignment. Osteoarthritis. No joint effusion. Soft tissues: Normal. IMPRESSION: No acute osseous findings.
--- NOTE | 2024-01-07 17:39 | EXP.UTC ---
Discharge Plan Disposition Patient Disposition: Home, Self-Care Condition: Good Prescriptions Prescriptions: No Action diclofenac sodium [Voltaren Arthritis Pain] 1 % gel 2 g TOPICAL QID Qty: 100 2RF Rx Instructions: apply to single elbow, wrist or hand; for hand includes palm/fingers/back of hand Wegovy 0.25 mg/0.5 mL pen injector 0.25 mg SQ WEEKLY Qty: 2 1RF Rx Instructions: administer weeks 1 through 4 of therapy lisinopril-hydrochlorothiazide 20-25 mg tablet 1 tab PO DAILY Qty: 90 3RF hydroxyzine pamoate [Vistaril] 25 mg capsule 25 mg PO TID PRN (Reason: itching) omeprazole 40 mg capsule,delayed release(DR/EC) 40 mg PO DAILY Qty: 30 2RF metformin 500 mg tablet 500 mg PO BID Qty: 180 3RF cholecalciferol (vitamin D3) 25 mcg (1,000 unit) capsule 25 mcg PO DAILY Qty: 90 1RF ergocalciferol (vitamin D2) [Vitamin D2] 1,250 mcg (50,000 unit) capsule See Rx Instructions .ROUTE .COMPLEX Qty: 12 0RF Dose Instruction: TAKE 1 CAPSULE BY MOUTH EVERY WEEK Rx Instructions: TAKE 1 CAPSULE BY MOUTH EVERY WEEK metoprolol succinate [Toprol XL] 25 mg tablet extended release 24 hr 25 mg PO DAILY Qty: 90 5RF tizanidine 4 mg capsule 4 mg PO HS PRN (Reason: muscle spasticity) Qty: 90 0RF Referrals Follow up/Referrals: Maxim Blankenship MD [Primary Care Provider] - See instructions Jose Stuart DO [Staff Physician] - See instructions Activity Restrictions/Add. Instructions Additional Instructions/Restrictions: Follow up with Dr Blankenship or Dr Stuart to discuss MRI to evaluate for medial meniscus tear Clinical Impressions Clinical Impression: Acute pain of left knee Instructions Patient Instructions: DI for Knee Pain Discharge ED Provider: Marcia Ireland [facility] General Stated complaint: WC 01/05, left knee pain Mode of Arrival: Ambulatory Source of Information: Patient Limitations: No Limitations Time Seen by Provider: 01/07/24 17:39 Description of Symptoms (Recalled from Triage Doc. by RN): PATIENT C/O LEFT KNEE PAIN AFTER HURTING IT AT WORK YESTERDAY HEENT Symptoms (Recalled from RN notes): No Resp Symptoms (Recalled from RN notes): No Skin Symptoms (Recalled from RN notes): No MS Symptoms (Recalled from RN notes): Yes Functional Status (Recalled from RN notes): WNL History of Present Illness Provider Complaint: Patient presents with left knee pain. He dropped his airpod in the floor and was kneeling to pick it up. When he put pressure on his left knee to stand, he felt a tearing sensation on the inside of his knee. He has had pain and swelling today. It hurts to walk and his knee catches when it bends. Onset (ago): day(s) (1) Location: left and lower extremity Related Data Home Medications Medication Instructions Recorded Confirmed hydroxyzine pamoate 25 mg capsule 25 mg PO TID PRN itching 08/19/23 12/23/23 (Vistaril) Previous Rx's Medication Instructions Recorded diclofenac sodium 1 % topical gel 2 g topical QID #100 grams 09/30/21 (Voltaren Arthritis Pain) metformin 500 mg tablet 500 mg PO BID #180 tabs 04/07/23 omeprazole 40 mg capsule,delayed 40 mg PO DAILY #30 caps 06/23/23 release cholecalciferol (vitamin D3) 25 25 mcg PO DAILY #90 caps 11/25/23 mcg (1,000 unit) capsule ergocalciferol (vitamin D2) 1,250 See Rx Instructions .Route 11/25/23 mcg (50,000 unit) capsule (Vitamin .COMPLEX #12 caps D2) metoprolol succinate 25 mg 25 mg PO DAILY #90 tabs 11/25/23 tablet,extended release 24 hr (Toprol XL) tizanidine 4 mg capsule 4 mg PO HS PRN muscle spasticity 11/25/23 #90 caps lisinopril 20 1 tab PO DAILY #90 tabs 12/23/23 mg-hydrochlorothiazide 25 mg tablet semaglutide (weight loss) 0.25 0.25 mg (0.5 mL) SQ WEEKLY #2 mL 12/23/23 mg/0.5 mL subcutaneous pen injector (Wegovy) Allergies Allergy/AdvReac Type Severity Reaction Status Date / Time No Known Allergies Allergy Verified 12/23/23 13:57 Worker's Comp Is this a Worker's Comp case?: No [facility] Disclaimer: The information contained in this section may have been updated after the patient was seen, as this information can be updated by other users. Medical History Abnormal result of cardiovascular function study Hypertension Hypertension Family History Other No significant family history Social History Smoking Status: Never smoker alcohol intake: never substance use type: denies use current occupational status: employed Travel in the last 8 weeks: None household members: family housing: house ROS Obtained: Yes All systems reviewed & no additional complaints except as documented Musculoskeletal Musculoskeletal: Reports arthralgias Physical Exam General General appearance: alert and in no apparent distress Respiratory Respiratory exam: Present normal lung sounds bilaterally; Absent respiratory distress Cardiovascular Cardiovascular exam: Present regular rate and normal rhythm; Absent JVD Extremities Exam Extremities exam: Present normal inspection, full ROM and normal capillary refill; Absent calf tenderness Expanded Lower Extremity Exam Left: Knee exam: Present tenderness, swelling, pain with valgus and laxity with valgus Neurological Exam Neurological exam: Present alert and oriented X3 Psychiatric Psychiatric exam: Present normal affect and normal mood Skin Skin exam: Present warm, dry, intact and normal color Lymphatic Lymphatic Findings: no adenopathy Medical Decision Making Dustin Inquiry Pt receiving controlled substance: No Vital Signs: 01/07/24 17:25 Temperature 98.0 F Temperature Source Oral Pulse Rate [Left Brachial] 103 H Respiratory Rate 18 Blood Pressure [Left Arm] 142/91 H Blood Pressure Mean [Left Arm] 108 Blood Pressure Source [Left Arm] Automatic Cuff Blood Pressure Position [Left Arm] Sitting 02 Sat by Pulse Oximetry 96 Oxygen Delivery Method Room Air Orders (Tests/Meds): ORDERS Category Date Time Status Knee XR left 3 views [XR knee LT 3V] Stat Exams 01/07/24 17:38 Ordered Radiology Data #1: Image(s): Knee Image Reviewed: Yes I reviewed the patient's radiology results and Yes I have reviewed radiologist's interpretation Preliminary Findings: Normal/NAD and No Fracture Seen
[2024-01-07 18:23] VITALS: BP 142/91; PULSE 103; RESP 18; TEMP 36.7; O2SAT 96
== END 2024-01-07 18:32 | disposition home or self-care (01) ==
PROVIDERS: Emergency Provider Physician Assistant; PCP Family Medicine
DX: M25.562 Pain in left knee (principal); X50.0XXA Overexertion from strenuous movement or load, initial encounter
CPT/HCPCS: 73562; 99212; 99213; G0463

== ENCOUNTER 2024-02-10 14:28 | Outpatient (CLI) | payer BC, SELFPAY ==
--- NOTE | 2024-02-10 14:28 | MR_ITS ---
FINAL REPORT CLINICAL HISTORY: LT Knee Pain FINDINGS: Multiplanar MR imaging of the right knee was performed without contrast. There is a tear of the posterior horn of the medial meniscus. The lateral meniscus is intact. The anterior and posterior cruciate ligaments are intact. The medial collateral ligament and lateral ligamentous complex are intact. The patellar and quadriceps tendons are intact. Note is made of patellar tendinitis. There are moderate degenerative changes with severe medial compartment chondromalacia. There osteochondral lesions of the medial femoral condyle and medial tibial plateau. Small joint effusion is seen. The musculature is intact. Note is made of venous varicosities. IMPRESSION: Tear posterior horn medial meniscus. Degenerative change and chondromalacia. Osteochondral lesions of the medial femoral condyle and medial tibial plateau. Reviewed, Interpreted and Dictated by Jesús Mcdowell III, MD Transcribed by Mei Buchanan Authenticated and [facility]
== END 2024-02-10 23:59 | disposition home or self-care (01) ==
LOC: RAD 14:28
PROVIDERS: PCP Family Medicine; Visit Provider Physician Assistant
DX: M25.562 Pain in left knee (principal)
CPT/HCPCS: 73721

== ENCOUNTER 2024-10-09 14:06 | Emergency (ER) | payer MEDICAID, SELFPAY ==
[2024-10-09] VITALS (9 sets, daily range): BP systolic 109–142; BP diastolic 58–78; PULSE 77–90; RESP 18–20; TEMP 36.6–36.7; O2SAT 90–100; BMI 62.6
--- NOTE | 2024-10-09 14:26 | ECG_ITS ---
APPROVED REPORT Exam: Resting ECG HR:86 bpm ECG Measurements Heart Rate 86 AXES VA 180 P 49 QRSd 94 QRS 71 QT 344 T 42 QTc 387 Conclusion SINUS RHYTHM NORMAL ECG Electronically signed by : EDI SAHA, 10/13/2024 10:59:48
--- NOTE | 2024-10-09 14:31 | ED_ITS ---
Discharge Plan Disposition Patient Disposition: Home, Self-Care Condition: Good Prescriptions Prescriptions: New sulfamethoxazole-trimethoprim [Bactrim DS] 800-160 mg tablet 1 tab PO BID 5 Days Qty: 10 0RF No Action lisinopril-hydrochlorothiazide 20-25 mg tablet 1 tab PO DAILY Qty: 90 3RF cholecalciferol (vitamin D3) 25 mcg (1,000 unit) capsule 25 mcg PO DAILY Qty: 90 1RF metoprolol succinate [Toprol XL] 25 mg tablet extended release 24 hr 25 mg PO DAILY Qty: 90 5RF ergocalciferol (vitamin D2) 1,250 mcg (50,000 unit) capsule See Rx Instructions .ROUTE .COMPLEX Qty: 12 0RF Dose Instruction: TAKE 1 CAPSULE BY MOUTH EVERY WEEK Rx Instructions: TAKE 1 CAPSULE BY MOUTH EVERY WEEK tizanidine 4 mg capsule 4 mg PO HS PRN (Reason: muscle spasticity) Qty: 90 0RF Referrals Follow up/Referrals: Maxim Blankenship MD [Primary Care Provider] - See instructions Activity Restrictions/Add. Instructions Additional Instructions/Restrictions: I have sent in antibiotics and to treat your urinary tract infection. Need to follow-up with your PCP within 48 hours for recheck. Sooner if you have worsening signs or symptoms or return to the ER as needed. Clinical Impressions Clinical Impression: Urinary tract infectious disease Qualifiers: Urinary tract infection type: site unspecified Hematuria presence: with hematuria Qualified Code(s): N39.0 - Urinary tract infection, site not specified Print Language Print Language: Citizen Of [place] Discharge ED Provider: Jake Pierre General Adult HPI <RICKY Verdugo - Last Filed: 10/09/24 23:15> General Chief complaint: Weakness Stated complaint: light headed,feeling faint, clammy, blurry vision Time Seen by Provider: 10/09/24 14:31 Mode of Arrival: Ambulatory Source of Information: Patient Description of Symptoms (Recalled from ER Triage Doc. by RN): Pt states when he got out of bed this AM he began to feel lightheaded, generalized weakness, and states he has felt clammy. History of Present Illness HPI narrative: Patient presents for evaluation of lightheadedness generalized weakness clammy skin. He denies chest pain shortness of breath fever chills hemoptysis hematochezia melena hematemesis hematuria nausea vomiting diarrhea dysuria hematuria headache. Nothing makes better or worse patient has taken no [id number] treatments. Related Data Previous Rx's ?Medication ?Instructions ?Recorded cholecalciferol (vitamin D3) 25 25 mcg PO DAILY #90 caps 11/25/23 mcg (1,000 unit) capsule metoprolol succinate 25 mg 25 mg PO DAILY #90 tabs 11/25/23 tablet,extended release 24 hr (Toprol XL) lisinopril 20 1 tab PO DAILY #90 tabs 12/23/23 mg-hydrochlorothiazide 25 mg tablet ergocalciferol (vitamin D2) 1,250 See Rx Instructions .Route 07/27/24 mcg (50,000 unit) capsule .COMPLEX #12 caps tizanidine 4 mg capsule 4 mg PO HS PRN muscle spasticity 10/02/24 #90 caps sulfamethoxazole 800 1 tab PO BID 5 days #10 tabs 10/09/24 mg-trimethoprim 160 mg tablet (Bactrim DS) Allergies Allergy/AdvReac Type Severity Reaction Status Date / Time No Known Allergies Allergy Verified 10/09/24 14:35 [facility] <RICKY Verdugo - Last Filed: 10/09/24 23:15> [facility] Disclaimer: The information contained in this section may have been updated after the patient was seen, as this information can be updated by other users. Medical History Abnormal result of cardiovascular function study Hypertension Hypertension Family History Other No significant family history Social History Smoking Status: Never smoker alcohol intake: never substance use type: denies use current occupational status: employed Travel in the last 8 weeks: None household members: family housing: house Have you lived/traveled outside [place] in past 30 days?: No Contact w/someone who lives/traveled outside US past 30 days?: No Exposure to someone with infectious disease in past 14 days?: No Do you have a fever (greater than 100.4 F or 38 C)?: No Have you tested positive for COVID-19: No Exposed to someone with COVID-19 in past 14 days?: No Do you have a sore throat?: No Do you have a cough?: No Do you have any weakness?: No Do you have any diarrhea?: No Are you experiencing any unusual bleeding?: No Do you have any muscle aches/pain?: No Do you have any abdominal pain?: No Are you experiencing loss of taste or smell?: No Other Medical History Have you received the Flu Vaccine for this season: No Have you received the Pneumonia Vaccine: No <RICKY Verdugo - Last Filed: 10/09/24 23:15> ROS Obtained: Yes Systems reviewed as appropriate & no additional complaints except as documented Physical Exam <RICKY Verdugo - Last Filed: 10/09/24 23:15> General General appearance: alert and in no apparent distress Respiratory Respiratory exam: Present normal lung sounds bilaterally Cardiovascular Cardiovascular exam: Present regular rate Neurological Exam Neurological exam: Present alert and oriented X3 Medical Decision Making <RICKY Verdugo - Last Filed: 10/09/24 23:15> Medical Records Medical records reviewed: Yes I reviewed the patient's medical records. Screening: Per USPSTF and CDC recommendations, given the prevalence of disease in our region, it is our hospital?s policy to screen for HIV and viral Hepatitis for all patients aged 18 and over and those with ongoing risk factors. Dustin Inquiry Pt receiving controlled substance: No Vital Signs: 10/09/24 14:15 10/09/24 14:31 10/09/24 14:46 Temperature 97.8 F Temperature Source Oral Pulse Rate 82 86 Pulse Rate [Right] 83 Respiratory Rate 18 Blood Pressure 128/64 142/76 H Blood Pressure [Right Arm] 133/76 Blood Pressure Mean [Right Arm] 95 Blood Pressure Source [Right Arm] Automatic Cuff Blood Pressure Position [Right Arm] Sitting 02 Sat by Pulse Oximetry 99 100 99 Oxygen Delivery Method Room Air Room Air Room Air 10/09/24 14:48 10/09/24 15:01 10/09/24 15:30 Temperature Temperature Source Pulse Rate 90 84 79 Pulse Rate [Right] Respiratory Rate Blood Pressure 141/67 H 118/72 114/64 Blood Pressure [Right Arm] Blood Pressure Mean [Right Arm] Blood Pressure Source [Right Arm] Blood Pressure Position [Right Arm] 02 Sat by Pulse Oximetry 99 98 98 Oxygen Delivery Method Room Air Room Air Room Air 10/09/24 16:01 10/09/24 16:31 10/09/24 18:00 Temperature 98.0 F Temperature Source Oral Pulse Rate 77 78 90 Pulse Rate [Right] Respiratory Rate 20 Blood Pressure 109/58 L 111/69 140/78 Blood Pressure [Right Arm] Blood Pressure Mean [Right Arm] Blood Pressure Source [Right Arm] Blood Pressure Position [Right Arm] 02 Sat by Pulse Oximetry 90 L 97 Oxygen Delivery Method Room Air Room Air Lab Data Lab results reviewed: Yes I reviewed the patient's lab results. Lab Results 10/09/24 14:35: WBC 11.2 H, RBC 5.24, Hgb 13.5 L, Hct 43.4, MCV 82.8, MCH 25.8 L , MCHC 31.1 L, RDW 14.8, Plt Count 330, MPV 9.5, Neut % (Auto) 67.1, Lymph % (Auto) 22.6, [place] % (Auto) 7.8, Eos % (Auto) 1.3, Baso % (Auto) 0.5, Neut # (Auto) 7.5, Lymph # (Auto) 2.5, [place] # (Auto) 0.9, Eos # (Auto) 0.2, Baso # (Auto) 0.1, Sodium 138, Potassium 4.3, Chloride 106, Carbon Dioxide 27, Anion Gap 9.3, BUN 27 H, Creatinine 1.00, Estimated Creat Clear 87, Estimated GFR 81, Est GFR ( Amer) 98, Glucose 103 H, Calcium 9.0, Total Bilirubin 0.3, AST 29, ALT 27, Alkaline Phosphatase 87, Total Protein 7.0, Albumin 4.2, Globulin 2.8, Albumin/Globulin Ratio 1.5 10/09/24 15:03: SARS-CoV-2 (PCR) Not detected, Influenza A Untype (PCR) Not detected, Influenza Type B (PCR) Not detected 10/09/24 16:22: Urine Color Yellow, Urine Appearance Slightly cloudy, Urine pH 5.0, Ur Specific [place] 1.030, Urine Protein Negative, Urine Glucose (UA) Negative, Urine Ketones Negative, Urine Blood Trace A, Urine Nitrate Negative, Urine Bilirubin Negative, Urine Urobilinogen 0.2, Ur Leukocyte Esterase Trace A, Urine RBC Occasional, Urine WBC 5-10, Ur Squamous Epith Cells Occasional, Urine Bacteria 2+ 10/09/24 14:35 10/09/24 14:35 Orders (Tests/Meds): ED MEDICATIONS Discontinued Medications Generic Name Dose Route Start Last Admin Trade Name Fidencio PRN Reason Stop Dose Admin Sodium Chloride 1,000 mls @ 999 mls/hr 10/09/24 14:53 10/09/24 15:06 Sod Chlor 0.9% 1000ml Bag IV 10/09/24 15:53 999 mls/hr .Q1H1M ONE Administration Ondansetron HCl 4 mg 10/09/24 14:53 10/09/24 15:05 Ondansetron 4mg/2ml Vial IV 10/09/24 14:54 4 mg ONCE ONE Administration ORDERS Category Date Time Status CBC w/Auto Diff [Complete Blood Count Auto Diff] Stat Lab 10/09/24 14:35 Completed CMP [Comprehensive Metabolic Panel] Stat Lab 10/09/24 14:35 Completed Rapid PCR Covid and Flu A/B Stat Lab 10/09/24 15:03 Completed UA [Urinalysis and Microscopic] Stat Lab 10/09/24 16:22 Completed Urine Culture Stat Micro 10/09/24 16:22 Received Medical Decision Narrative: In summary patient is a 43-year-old male who presents to the emergency department for evaluation of generalized weakness subjective lightheadedness clammy and feeling faint . Patient is patient is actually hemodynamically stable with a blood pressure 133/76 heart rate 83 normal sinus rhythm on the bedside monitor breathing 18 times a minute satting at 99% on room air upon arrival, afebrile at 97.8. Physical exam is remarkable for a well-nourished well-developed morbidly obese, with a BMI of 62.6, 43-year-old male who otherwise is in no acute distress. Breath sounds clear and equal bilaterally to the bases with adventitious sounds posterior pharynx is patent normal without exudate, no cervical lymphadenopathy, bilateral tympanic membranes are normal with no effusion, breath sounds clear and equal bilaterally to the bases without adventitious sounds or increased work of breathing, abdomen soft nontender no rebound or guarding or rigidity. Bowel sounds normal active.. Differential diagnosis includes viral syndrome versus respiratory tract infection versus electrolyte abnormality versus urinary tract infection etc. Initial workup will be conducted with hematologic labs COVID and flu swabs urinalysis. Initial interventions include crystalloid bolus Toradol Tylenol Zofran. Initial workup reviewed by me and patient's hematologic labs are significant for white count of 11.2 with no neutrophilic shift, CMP shows no electrolyte abnormalities with normal creatinine and GFR urinalysis however shows trace blood trace leukocyte Estrace and microscopic exam shows occasional red blood cells 5-10 white cells 2+ bacteria COVID and flu are negative.. Upon repeat evaluation patient reported significant improvement in his constitutional symptoms after initial intervention. Given this patient is appropriate for discharge with prescription for Bactrim with first dose given here and close follow-up with his PCP for further workup of urinary tract infection in a male and strict return precautions. <Jake Pierre MD - Last Filed: 10/10/24 14:54> Vital Signs: 10/09/24 14:15 10/09/24 14:31 10/09/24 14:46 Temperature 97.8 F Temperature Source Oral Pulse Rate 82 86 Pulse Rate [Right] 83 Respiratory Rate 18 Blood Pressure 128/64 142/76 H Blood Pressure [Right Arm] 133/76 Blood Pressure Mean [Right Arm] 95 Blood Pressure Source [Right Arm] Automatic Cuff Blood Pressure Position [Right Arm] Sitting 02 Sat by Pulse Oximetry 99 100 99 Oxygen Delivery Method Room Air Room Air Room Air 10/09/24 14:48 10/09/24 15:01 10/09/24 15:30 Temperature Temperature Source Pulse Rate 90 84 79 Pulse Rate [Right] Respiratory Rate Blood Pressure 141/67 H 118/72 114/64 Blood Pressure [Right Arm] Blood Pressure Mean [Right Arm] Blood Pressure Source [Right Arm] Blood Pressure Position [Right Arm] 02 Sat by Pulse Oximetry 99 98 98 Oxygen Delivery Method Room Air Room Air Room Air 10/09/24 16:01 10/09/24 16:31 10/09/24 18:00 Temperature 98.0 F Temperature Source Oral Pulse Rate 77 78 90 Pulse Rate [Right] Respiratory Rate 20 Blood Pressure 109/58 L 111/69 140/78 Blood Pressure [Right Arm] Blood Pressure Mean [Right Arm] Blood Pressure Source [Right Arm] Blood Pressure Position [Right Arm] 02 Sat by Pulse Oximetry 90 L 97 Oxygen Delivery Method Room Air Room Air Lab Data Lab Results 10/09/24 14:35: WBC 11.2 H, RBC 5.24, Hgb 13.5 L, Hct 43.4, MCV 82.8, MCH 25.8 L , MCHC 31.1 L, RDW 14.8, Plt Count 330, MPV 9.5, Neut % (Auto) 67.1, Lymph % (Auto) 22.6, [place] % (Auto) 7.8, Eos % (Auto) 1.3, Baso % (Auto) 0.5, Neut # (Auto) 7.5, Lymph # (Auto) 2.5, [place] # (Auto) 0.9, Eos # (Auto) 0.2, Baso # (Auto) 0.1, Sodium 138, Potassium 4.3, Chloride 106, Carbon Dioxide 27, Anion Gap 9.3, BUN 27 H, Creatinine 1.00, Estimated Creat Clear 87, Estimated GFR 81, Est GFR ( Amer) 98, Glucose 103 H, Calcium 9.0, Total Bilirubin 0.3, AST 29, ALT 27, Alkaline Phosphatase 87, Total Protein 7.0, Albumin 4.2, Globulin 2.8, Albumin/Globulin Ratio 1.5 10/09/24 15:03: SARS-CoV-2 (PCR) Not detected, Influenza A Untype (PCR) Not detected, Influenza Type B (PCR) Not detected 10/09/24 16:22: Urine Color Yellow, Urine Appearance Slightly cloudy, Urine pH 5.0, Ur Specific [place] 1.030, Urine Protein Negative, Urine Glucose (UA) Negative, Urine Ketones Negative, Urine Blood Trace A, Urine Nitrate Negative, Urine Bilirubin Negative, Urine Urobilinogen 0.2, Ur Leukocyte Esterase Trace A, Urine RBC Occasional, Urine WBC 5-10, Ur Squamous Epith Cells Occasional, Urine Bacteria 2+ Orders (Tests/Meds): ED MEDICATIONS Discontinued Medications Generic Name Dose Route Start Last Admin Trade Name Freq PRN Reason Stop Dose Admin Sodium Chloride 1,000 mls @ 999 mls/hr 10/09/24 14:53 10/09/24 15:06 Sod Chlor 0.9% 1000ml Bag IV 10/09/24 15:53 999 mls/hr .Q1H1M ONE Administration Ondansetron HCl 4 mg 10/09/24 14:53 10/09/24 15:05 Ondansetron 4mg/2ml Vial IV 10/09/24 14:54 4 mg ONCE ONE Administration ORDERS Category Date Time Status CBC w/Auto Diff [Complete Blood Count Auto Diff] Stat Lab 10/09/24 14:35 Completed CMP [Comprehensive Metabolic Panel] Stat Lab 10/09/24 14:35 Completed Rapid PCR Covid and Flu A/B Stat Lab 10/09/24 15:03 Completed UA [Urinalysis and Microscopic] Stat Lab 10/09/24 16:22 Completed Urine Culture Stat Micro 10/09/24 16:22 Received ECG Data Tracing #1: I reviewed this ECG and interpreted as documented below: EKG interpreted by me personally at 1428. QTc normal at 387, OR interval normal at 180. No ST elevation or depression. Normal sinus rhythm with ventricular rate of 86 bpm Medical Decision Narrative: In summary patient is a 43-year-old male who presents to the emergency department for evaluation of generalized weakness subjective lightheadedness clammy and feeling faint . Patient is patient is actually hemodynamically stable with a blood pressure 133/76 heart rate 83 normal sinus rhythm on the bedside monitor breathing 18 times a minute satting at 99% on room air upon arrival, afebrile at 97.8. Physical exam is remarkable for a well-nourished well-developed morbidly obese, with a BMI of 62.6, 43-year-old male who otherwise is in no acute distress. Breath sounds clear and equal bilaterally to the bases with adventitious sounds posterior pharynx is patent normal without exudate, no cervical lymphadenopathy, bilateral tympanic membranes are normal with no effusion, breath sounds clear and equal bilaterally to the bases without adventitious sounds or increased work of breathing, abdomen soft nontender no rebound or guarding or rigidity. Bowel sounds normal active.. Differential diagnosis includes viral syndrome versus respiratory tract infection versus electrolyte abnormality versus urinary tract infection etc. Initial workup will be conducted with hematologic labs COVID and flu swabs urinalysis. Initial interventions include crystalloid bolus Toradol Tylenol Zofran. Initial workup reviewed by me and patient's hematologic labs are significant for white count of 11.2 with no neutrophilic shift, CMP shows no electrolyte abnormalities with normal creatinine and GFR urinalysis however shows trace blood trace leukocyte Estrace and microscopic exam shows occasional red blood cells 5-10 white cells 2+ bacteria COVID and flu are negative.. Upon repeat evaluation patient reported significant improvement in his constitutional symptoms after initial intervention. Given this patient is appropriate for discharge with prescription for Bactrim with first dose given here and close follow-up with his PCP for further workup of urinary tract infection in a male and strict return precautions. I was consulted by the MANUEL, and we discussed the complexity of the problems being addressed. I approve the treatment and management plan for this patient's care in the emergency department, thus performing a substantive portion of the medical decision making. Jake Pierre MD Critical Care <RICKY Verdugo - Last Filed: 10/09/24 23:15> Critical Care Time Critical Care Time: No
[2024-10-09 15:00] LABS: Basophils # 0.1 K/mm3 (0-0.2); Basophils % 0.5 % (0.1-2.0); Eosinophils # 0.2 K/mm3 (0.0-0.4); Eosinophils % 1.3 % (0.1-12.0); Hematocrit 43.4 % (42.0-52.0); Hemoglobin 13.5 g/dL (14.1-18.0); Lymphocytes # 2.5 K/mm3 (0.7-4.5); Lymphocytes % 22.6 % (10-50); Mean Corpuscular HGB Conc 31.1 g/dL (31.8-35.4); Mean Corpuscular Hemoglobin 25.8 pg (27.0-31.2); Mean Corpuscular Volume 82.8 fl (80-94); Mean Platelet Volume 9.5 fl (7.4-10.4); Monocytes # 0.9 K/mm3 (0.1-1.0); Monocytes % 7.8 % (1.7-9.3); Neutrophils # 7.5 K/mm3 (1.8-7.8); Neutrophils % 67.1 % (37.0-80.0); Platelet Count 330 K/mm3 (142-424); Red Blood Count 5.24 M/mm3 (4.60-6.20); Red Cell Distribution Width 14.8 % (11.5-17.5); White Blood Count 11.2 K/mm3 (4.8-10.8)
[2024-10-09 15:04] LABS: Albumin Level 4.2 g/dl (3.5-5.0); Chloride 106 mmol/L (98-107); Sodium 138 mmol/L (136-145)
[2024-10-09 15:05] LABS: Potassium 4.3 mmoL/L (3.5-5.1)
[2024-10-09] MEDS: ONDANSETRON 4MG/2ML VIAL 4 MG IV (15:05)
[2024-10-09 15:06] LABS: Coronavirus 19, PCR Not Detected (NotDetected); Influenza A, PCR Not Detected (NotDetected); Influenza B, PCR Not Detected (NotDetected)
[2024-10-09] MEDS: 0.9 % SODIUM CHLORIDE 1000ML 1,000 ML 999 ML IV (15:06)
[2024-10-09 15:07] LABS: Alanine Aminotransferase 27 U/L (12-78); Albumin/Globulin Ratio 1.5 (1.1-1.8); Alkaline Phosphatase 87 U/L (38-126); Anion Gap 9.3 mEq/L (5-15); Aspartate Amino Transferase 29 U/L (17-59); Bilirubin,Total 0.3 mg/dl (0.2-1.3); Blood Urea Nitrogen 27 mg/dl (9-20); Carbon Dioxide 27 mmol/L (22.0-30.0); Creatinine Clearance Estimated 87 mL/min (50-200); Estimated Glomerular Filt Rate 81 ml/min (>60); GFR (African American) 98 ML/MIN (>60); Globulin 2.8 g/dL (1.3-3.2)
[2024-10-09 15:08] LABS: Glucose 103 mg/dl (74-100)
[2024-10-09 16:26] LABS: Microscopic, Urine URINE MICROSCOPIC (MICROSCOPIC)
--- NOTE | 2024-10-09 17:04 | PC.NURSE ---
still awaiting urine results received in by lab approx 40 minutes ago
[2024-10-09 17:15] LABS: Appearance,Urine Slightly Cloudy (Clear); Bilirubin,Urine Negative (Negative); Blood, Urine Trace (Negative); Color,Urine Yellow (Yellow); Glucose,Urine (UA) Negative (Negative); Ketones,Urine Negative (Negative); Nitrate,Urine Negative (Negative); Protein,Urine Negative (Negative); Urobilinogen,Urine 0.2 EU/dl (0.2)
[2024-10-09 17:16] LABS: Bacteria,Urine 2+ /lpf; Leukocyte Esterase,Urine Trace (Negative); RBC,Urine Occasional #/hpf (0-3); Squamous Epithelial Cell,Urine Occasional #/hpf (0-5)
--- NOTE | 2024-10-09 17:25 | PC.NURSE ---
ready for re eval
== END 2024-10-09 18:01 | disposition home or self-care (01) ==
PROVIDERS: Physician Assistant; Emergency Provider Student in an Organized Health Care Education/Training Program; PCP Family Medicine
DX: N39.0 Urinary tract infection, site not specified (principal); R42 Dizziness and giddiness; R55 Syncope and collapse; R53.1 Weakness; R23.8 Other skin changes
CPT/HCPCS: 80053; 81001; 85025; 87086; 87636; 93005; 96361; 96374; 99283; J2405; J7030

== ENCOUNTER 2024-10-23 14:20 | Outpatient (CLI) | payer MEDICAID, SELFPAY ==
[2024-10-23 22:51] LABS: Albumin Level 4.2 g/dl (3.5-5.0); Chloride 105 mmol/L (98-107); Potassium 4.4 mmoL/L (3.5-5.1); Sodium 138 mmol/L (136-145)
[2024-10-23 22:54] LABS: Alanine Aminotransferase 27 U/L (12-78); Albumin/Globulin Ratio 1.6 (1.1-1.8); Alkaline Phosphatase 80 U/L (38-126); Anion Gap 4.4 mEq/L (5-15); Aspartate Amino Transferase 25 U/L (17-59); Bilirubin,Total 0.3 mg/dl (0.2-1.3); Blood Urea Nitrogen 34 mg/dl (9-20); Calcium 9.6 mg/dl (8.4-10.2); Carbon Dioxide 33 mmol/L (22.0-30.0); Estimated Glomerular Filt Rate 72 ml/min (>60); GFR (African American) 88 ML/MIN (>60); Globulin 2.7 g/dL (1.3-3.2); Glucose 104 mg/dl (74-100); Total Protein,Serum 6.9 g/dl (6.3-8.2)
[2024-10-23 23:20] LABS: Thyroid Stimulating Hormone 0.81 uIU/mL (0.465-4.68)
[2024-10-23 23:30] LABS: Hemoglobin A1C 5.5 % (4.0-6.0)
[2024-10-23 23:31] LABS: HIV Combo NEGATIVE (Negative)
[2024-10-23 23:38] LABS: Hepatitis C Ab Qual. W/ RFX NEGATIVE (Negative)
[2024-10-24 05:18] LABS: Prostate Specific Ag Screen 0.8 ng/ml (0.0-4.0)
== END 2024-10-23 23:59 | disposition home or self-care (01) ==
LOC: LAB.DROPOF 10-24 12:53
PROVIDERS: PCP Family Medicine; Visit Provider Family Medicine
DX: N39.0 Urinary tract infection, site not specified (principal); I10 Essential (primary) hypertension; R07.9 Chest pain, unspecified; R31.9 Hematuria, unspecified; Z11.59 Encounter for screening for other viral diseases
CPT/HCPCS: 80053; 83036; 84443; 86803; 87389; G0103

== ENCOUNTER 2025-02-02 13:25 | Emergency (ER) | payer SELFPAY ==
--- OUTSIDE RECORDS SUMMARY | 2025-02-02 13:30 | XMS_ITS | Data Portability ---
[facility] ADMIN Address [address] [place] [id number] Care Team Providers Care Ortho Rn Name Role Phone FAVIANNELLIE Nguyen Primary Care Provider Assessment Encounter Date Assessment Date Assessment LastModified by Organization Details LastModified Time 12/24/2023 12/24/2023 43-year-old male with intermittent non-cardiac chest and dysphagia. EGD showed reactive gastropathy and chronic duodenitis on biopsy. He denies dyspeptic symptoms. -Will obtain esophageal manometry for further evaluation [email or web address] Not available 12/24/2023 12:23:46 Plan of Treatment Reminders Order Date Submit Date Provider Last Modified By Organization Details Last Modified Time Details Appointments None record ed. Lab None record ed. Referral None record ed. Procedures None record ed. Surgeries None record ed. Imaging None record ed. Medication Orders None record ed. Patient TargetsNo targets recorded. Patient InstructionsNo instructions recorded. Reason for Referral None Reported. Problems Name Problem SNOMED Code Status Onset Date Resolution Date Notes Provider Name and Address Organization Details Recorded Time Chronic duodenitis 686848674 Active 2023 Blas Hu PA-C [address], [place], [address] , [facility] & [place] 12:24:25 Non-cardiac chest pain 731195259 Active 2023 Blas Hu PA-C [address], [place], [address] , [facility] & [place] 05/24/202 4 12:24:30 Dysphagia 94283472 Active 2023 Blas Hu PA-C [address] [facility], [place], [address] , [facility] & [place] 4 12:24:33 Problem Notes None recorded. Medical Equipment None Reported. Medications Name Sig Start Date Stop Date Status Note LastModified by Organization Details LastModified Time amoxicillin 500 mg capsule 12/23 completed Not Available Not Available Not Available metformin 500 mg tablet active Not Available Not Available Not Available lisinopril 20 mg-hydrochloroth iazide 12.5 mg tablet active Not Available Not Available Not Available azithromycin 250 mg tablet active Not Available Not Available No t Available ibuprofen 800 mg tablet active Not Available Not Available Not Available Lidocaine Viscous 2 % mucosal solution active Not Available Not Avail able Not Available tizanidine 4 mg tablet active Not Available Not Available Not Available hydrocodone 5 mg-acetaminophen 325 mg tablet active Not Available Not Availabl e Not Available ondansetron HCl 4 mg tablet active Not Available Not Available Not Available sulfamethoxazole 800 mg-trimethoprim 160 mg tablet active Not Available Not Availabl e Not Available omeprazole 40 mg capsule,delayed release active Not Available Not Available Not Available aspirin 81 mg tablet,delayed release active Not Available Not Available Not Available benzonatate 100 mg capsule active Not Available Not Available N ot Available nitroglycerin 0.4 mg sublingual tablet active Not Available Not Available Not Available metoprolol succinate ER 25 mg tablet,extended release 24 hr active Not Available Not Availabl e Not Available methylprednisolo ne 4 mg tablets in a dose pack active Not Available Not Availab le Not Available Vitamin D2 1,250 mcg (50,000 unit) capsule active Not Available Not Availabl e Not Available chlorhexidine gluconate 0.12 % mouthwash active Not Available Not Available No t Available Vitals Date Recorded Body height Body mass index (BMI) Body weight Body temperature Oxygen saturation Oxygen saturation in Arterial blood by Pulse oximetry Heart rate Heart rate Systolic And Diastolic Provider Name and Address Organization Details Last Updated DateTime 4 172.72 cm 61.7 kg/m2 870847. 86 g 97.9 [degF] 98 % 98 % 62 /min 61 /min 129/80 mm[Hg] Florinda Butcher [facility] & [place] 11:35:48 Social History None recorded. Functional Status Question Answer Note LastModified by Organizat ion Details LastModified Time Do you use any illicit or recreational drugs? No [email or web address] Information not available 10/07/2023 What is your level of alcohol consumption? None [email or web address] Information not available 10/07/2023 Mental Status None recorded. Family History Nothing Reported. Medical History Condition Response Hypertension Y Past Encounters Encounter ID Performer Location Encounter Start Date Encounter Closed Date Diagnosis/Indication Diagnosis SNOMED-CT Code Diagnosis ICD10 Code Diagnosis Note [id number] Blas Hu PA-C [facility] [address] [place] [address] 12/24/2023 11:06:17 12/24/2023 11:46:29 Chronic duodenitis 107889553 K29.80 Non-cardia c chest pain 034275334 R07.89 Dysphagia 71425388 R13.1 0 Health Concerns Section Related Observation LastModified by Organization Detai ls LastModified Time None Recorded Concern Status LastModified by Organization Details LastModified Time None Recorded Advance Directives Directive None Recorded Payers Insurance Date Sequence Insurance Name Policy Number Policy Andrew Covered Member ID Andrew Member ID Guarantor Name 12/21/2023 1 [id number] ([facility]) [id number] Fernie Ireland [id number] Fernie Ireland 07/23/2024 PAYMENT PLAN Fernie Ireland Notes Date Note Type Note Provider Name and Address Organization Details Recorded Time 12/24/2023 text/html Mr. Ireland is a very pleasant 43-year-old male who presents to the office today for procedure follow-up. He underwent EGD by Dr. Rodriguez in evaluation of dysphagia and non-cardiac chest pain on 10/18/23. Mild gastric erythema was noted, with gross endoscopic findings otherwise unremarkable. Pathology showed mild chronic peptic duodenitis and reactive gastropathy. Mid and distal esophageal biopsies showed non-specific reactive changes with eosinophilia or intestinal metaplasia. He has continued to experience occasional chest discomfort and dysphagia. He states he has had a negative cardiac stress test and normal cardiac cath at [facility]. He denies heartburn. He states he is no longer taking the PPI and has not noticed any worsening symptoms since stopping it. Blas Hu PA-C [address] [facility], [place], [address], [place] - [facility] [place] & [place] 12/24/2023 12:25:15
--- NOTE | 2025-02-02 13:40 | US_ITS ---
PROCEDURE INFORMATION: Exam: US Scrotum Exam date and time: 02/02/2025 1:46 PM Age: 44 years old Clinical indication: Scrotum pain; Additional info: R testicle pain / swelling TECHNIQUE: Imaging protocol: Real-time ultrasound of the scrotum and contents with color Doppler and image documentation. COMPARISON: US - [facility]ON US Testicular 01/02/2019 8:25 PM FINDINGS: Right testicle: Normal. No mass. Normal color Doppler and arterial waveforms. No torsion. Left testicle: Normal. No mass. Normal color Doppler and arterial waveforms. No torsion. Epididymides: Normal. 7 mm benign-appearing left epididymal head cyst. No further follow-up needed. Scrotum/soft tissues: No hydroceles. Small bilateral varicoceles, with subtle reflux flow elicited on the right with Valsalva. IMPRESSION: 1. No evidence of testicular torsion or epididymo-orchitis. 2. Small bilateral varicoceles.
--- NOTE | 2025-02-02 13:40 | CT_ITS ---
PROCEDURE INFORMATION: Exam: CT Abdomen And Pelvis With Contrast Exam date and time: 02/02/2025 3:07 PM Age: 44 years old Clinical indication: Abdominal pain; Additional info: R sided abd pain TECHNIQUE: Imaging protocol: Computed tomography of the abdomen and pelvis with contrast. Radiation optimization: All CT scans at this facility use at least one of these dose optimization techniques: automated exposure control; mA and/or kV adjustment per patient size (includes targeted exams where dose is matched to clinical indication); or iterative reconstruction. Contrast material: ISOVUE; Contrast volume: 75 ml; Contrast route: IV; COMPARISON: US TESTICULAR 02/02/2025 1:46 PM FINDINGS: Lungs: See Heart finding. Heart: Cardiomegaly. Lung bases are clear. Liver: Normal. No mass. Gallbladder and biliary ducts: Normal. No calcified stones. No ductal dilation. Pancreas: Possible mild inflammatory change around the pancreatic head/duodenal pancreatic groove. Pancreas otherwise unremarkable. No focal lesion or ductal dilatation. Recommend clinical correlation. Consider MRI according to clinical discretion. Spleen: Normal. No splenomegaly. Adrenal glands: Normal. No mass. Kidneys and ureters: No renal or ureteral calculi or obstruction bilaterally. Stomach and bowel: No bowel obstruction or acute inflammation. Mild descending and sigmoid colonic diverticulosis without acute inflammation. Appendix: No evidence of appendicitis. Intraperitoneal space: Unremarkable. No free air. No significant fluid collection. Vasculature: Unremarkable. No abdominal aortic aneurysm. Lymph nodes: Unremarkable. No enlarged lymph nodes. Urinary bladder: Unremarkable as visualized. Reproductive: Unremarkable as visualized. Bones/joints: Unremarkable. No acute fracture. Soft tissues: Unremarkable. IMPRESSION: 1. No renal or ureteral calculi or obstruction bilaterally. 2. No bowel obstruction or acute inflammation. 3. Mild descending and sigmoid colonic diverticulosis without acute inflammation. 4. Possible mild inflammatory change around the pancreatic head/duodenal pancreatic groove. Pancreas otherwise unremarkable. No focal lesion or ductal dilatation. Recommend clinical correlation. Consider MRI according to clinical discretion.
--- NOTE | 2025-02-02 13:43 | ED_ITS ---
Discharge Plan Disposition Patient Disposition: Home, Self-Care Prescriptions Prescriptions: New nystatin 100,000 unit/gram powder 1 applic topical BID 14 Days Qty: 60 0RF ciprofloxacin HCl 500 mg tablet 500 mg PO BID 5 Days Qty: 10 0RF No Action ergocalciferol (vitamin D2) 1,250 mcg (50,000 unit) capsule See Rx Instructions .ROUTE .COMPLEX Qty: 12 12RF Dose Instruction: TAKE 1 CAPSULE BY MOUTH EVERY WEEK Rx Instructions: TAKE 1 CAPSULE BY MOUTH EVERY WEEK lisinopril-hydrochlorothiazide 20-25 mg tablet 1 tab PO DAILY Qty: 90 3RF metoprolol succinate [Toprol XL] 25 mg tablet extended release 24 hr 25 mg PO DAILY Qty: 90 5RF tizanidine 4 mg capsule 4 mg PO HS PRN (Reason: muscle spasticity) Qty: 90 0RF clotrimazole 1 % cream 1 applic topical TID Qty: 45 5RF cholecalciferol (vitamin D3) 25 mcg (1,000 unit) capsule 25 mcg PO DAILY Qty: 90 1RF Referrals Follow up/Referrals: Jesse Cardenas II, MD [Staff Physician, Gastroenterology] - See instructions Maxim Blankenship MD [Primary Care Provider, Family Practice] - See instructions Activity Restrictions/Add. Instructions Additional Instructions/Restrictions: Today you were evaluated in the emergency department for abdominal pain and testicular pain. Your CT is remarkable for diverticulosis which may be causing some your generalized abdominal pain. You also have bilateral varicoceles, please wear tight underwear or jockstrap, you may also follow-up with urology for further evaluation. It shows that your pancreas has some mild inflammatory changes, please follow-up with your PCP or GI to keep an eye on this, this is very important. You most likely need endoscopy. Please check your MyChart for your other results of the swab that we performed today. You were sent a prescription for a powder that you may use on your testicle area for yeast. Clinical Impressions Clinical Impression: Diverticulosis, Bilateral varicoceles, Mansi infection, UTI (urinary tract infection) Instructions Patient Instructions: DI for Varicocele Print Language Print Language: Afghan Discharge ED Provider: [facility] <Yojana Soto APRN - Last Filed: 02/02/25 16:02> General Chief complaint: Urogenital-Male Stated complaint: lower rt side pain, testicle pain Time Seen by Provider: 02/02/25 13:26 History of Present Illness HPI narrative: pt is a 44 year old male PMHx obesity, HTN, GERD, Vit D deficiency who presents to the ED for complaints of right upper quadrant, right lower quadrant abdominal pain that has been present intermittently for a few months, associated with right testicle pain that has been present for several days. Patient also adds that he has a rash on his penis that has been there for several months intermittently, has been treated with cream for yeast infection however no relief. Related Data Previous Rx's ?Medication ?Instructions ?Recorded cholecalciferol (vitamin D3) 25 25 mcg PO DAILY #90 ca ps 11/25/23 mcg (1,000 unit) capsule clotrimazole 1 % topical cream 1 applic topical TID #4 5 grams 10/23/24 ergocalciferol (vitamin D2) 1,250 See Rx Instructions .Route 10/23/24 mcg (50,000 unit) capsule .COMPLEX #12 caps lisinopril 20 1 tab PO DAILY #90 tabs 03/2 4/25 mg-hydrochlorothiazide 25 mg tablet metoprolol succinate 25 mg 25 mg PO DAILY #90 tabs tablet,extended release 24 hr (Toprol XL) tizanidine 4 mg capsule 4 mg PO HS PRN muscle [facility] 10/23/24 #90 caps ciprofloxacin HCl 500 mg tablet 500 mg PO BID 5 days # 10 tabs 02/02/25 nystatin 100,000 unit/gram topical 1 applic topical BI D 14 days #60 02/02/25 powder grams Allergies Allergy/AdvReac Type Severity Reaction Status Date / Time No Known Allergies Allergy Verified 10/23/24 13:19 [facility] <Yojana Soto APRN - Last Filed: 02/02/25 16:02> PFS Disclaimer: The information contained in this section may have been updated after the patient was seen, as this information can be updated by other users. Medical History Abnormal result of cardiovascular function study Hypertension Hypertension Family History Other No significant family history Social History Smoking Status: Never smoker alcohol intake: never substance use type: denies use current occupational status: employed Travel in the last 8 weeks?: None household members: family housing: house Have you lived/traveled outside [place] in past 30 days?: No Contact w/someone who lives/traveled outside US past 30 days?: No Exposure to someone with infectious disease in past 14 days?: No Do you have a fever (greater than 100.4 F or 38 C)?: No Have you tested positive for COVID-19?: No Exposed to someone with COVID-19 in past 14 days?: No Do you have a sore throat?: No Do you have a cough?: No Do you have any weakness?: No Do you have any diarrhea?: No Are you experiencing any unusual bleeding?: No Do you have any muscle aches/pain?: No Do you have any abdominal pain?: No Are you experiencing loss of taste or smell?: No Other Medical History Have you received the Flu Vaccine for this season: No Have you received the Pneumonia Vaccine: No <Yojana Soto APRN - Last Filed: 02/02/25 16:02> ROS Obtained: Yes Systems reviewed as appropriate & no additional complaints except as documented Physical Exam <Yojana Soto APRN - Last Filed: 02/02/25 16:02> General General appearance: alert and in no apparent distress Head Head exam: atraumatic Chest Chest inspection: Present normal inspection Respiratory Respiratory exam: Present normal lung sounds bilaterally and respiratory distress Cardiovascular Cardiovascular exam: Present regular rate Abdominal Exam Abdominal exam: Present tenderness (RUQ RLQ ) exam: Present testicular tenderness (R testicle ) Extremities Exam Extremities exam: Present full ROM Neurological Exam Neurological exam: Present alert and oriented X3 Skin Skin exam: Present warm Medical Decision Making <Yojana Soto APRN - Last Filed: 02/02/25 16:02> Medical Records Screening: Per USPSTF and CDC recommendations, given the prevalence of disease in our region, it is our hospital?s policy to screen for HIV and viral Hepatitis for all patients aged 18 and over and those with ongoing risk factors. Dustin Inquiry Pt receiving controlled substance: No Vital Signs: 02/02/25 13:47 02/02/25 14:53 02/02/25 15:30 Temperature 98.2 F Temperature Source Oral Pulse Rate 77 78 Pulse Rate [Right] 89 Respiratory Rate 22 18 Blood Pressure 121/66 103/62 L Blood Pressure [Right Arm] 115/70 Blood Pressure Mean 75 Blood Pressure Mean [Right Arm] 85 Blood Pressure Source 02 Sat by Pulse Oximetry 95 99 99 Oxygen Delivery Method Room Air Room Air 02/02/25 15:57 Temperature 98.2 F Temperature Source Oral Pulse Rate 80 Pulse Rate [Right] Respiratory Rate 20 Blood Pressure 132/62 Blood Pressure [Right Arm] Blood Pressure Mean Blood Pressure Mean [Right Arm] Blood Pressure Source Automatic Cuff 02 Sat by Pulse Oximetry Oxygen Delivery Method Room Air Lab Data Lab Results 02/02/25 13:35: Urine Color Yellow, Urine Appearance Clear, Urine pH 5.5, Ur Specific [place] >= 1.030, Urine Protein Negative, Urine Glucose (UA) Negative, Urine Ketones Negative, Urine Blood Trace-i, Urine Nitrate Negative, Urine Bilirubin Negative, Urine Urobilinogen 0.2, Ur Leukocyte Esterase 2+ A, Urine RBC 3-5, Urine WBC 20-50, Ur Squamous Epith Cells Occasional, Urine Bacteria Trace 02/02/25 14:35: WBC 12.0 H, RBC 4.60, Hgb 12.4 L, Hct 38.1 L, MCV 82.8, MCH 27.0, MCHC 32.5, RDW 14.6, Plt Count 344, MPV 9.6, Neut % (Auto) 75.1, Lymph % (Auto) 15.9, [place] % (Auto) 5.9, Eos % (Auto) 1.9, Baso % (Auto) 0.4, Neut # (Auto) 9.0 H, Lymph # (Auto) 1.9, [place] # (Auto) 0.7, Eos # (Auto) 0.2, Baso # (Auto) 0.1, Sodium 137, Potassium 3.9, Chloride 102, Carbon Dioxide 26, Anion Gap 12.9, BUN 25 H, Creatinine 1.00, Estimated Creat Clear 89, Estimated GFR 80, Est GFR ( Amer) 97, Glucose 114 H, Calcium 9.4, Total Bilirubin 0.6, AST 31, ALT 23, Alkaline Phosphatase 71, Total Protein 7.6, Albumin 4.3, Globulin 3.3 H, Albumin/Globulin Ratio 1.3, Lipase 70 02/02/25 14:35 02/02/25 14:35 Orders (Tests/Meds): ED MEDICATIONS Discontinued Medications Generic Name Dose Route Start Last Admin Trade Name Fidencio PRN Reason Stop Dose Admin Iopamidol 75 ml 02/02/25 15:08 02/02/25 15:13 Iopamidol-370 (76%);100ml Bottle IV 02/02/25 15:09 75 ml ONCE ONE Administration Morphine Sulfate 4 mg 02/02/25 13:40 02/02/25 14:37 Morphine 2mg/Ml Syringe IV 02/02/25 13:41 4 mg ONCE ONE Administration Ondansetron HCl 4 mg 02/02/25 13:40 02/02/25 14:37 Ondansetron 4mg/2ml Vial IV 02/02/25 13:41 4 mg ONCE ONE Administration Sodium Chloride 10 ml 02/02/25 15:08 02/02/25 15:13 Sodium Chloride 0.9% 10ml Syr (Rad Only) IV 02/02/25 15:09 10 ml ONCE ONE Administration ORDERS Category Date Time Status CT abdomen pelvis w con Stat Cat Scan 02/02/25 13:40 Completed CBC w/Auto Diff [Complete Blood Count Auto Diff] Stat Lab 02/02/25 14:35 Completed CMP [Comprehensive Metabolic Panel] Stat Lab 02/02/25 14:35 Completed HSV 1/2 PCR, (BLOOD/SWAB) Routine Lab 02/02/25 13:40 Received Hepatitis Panel Stat Lab 02/02/25 14:35 Received Lipase Stat Lab 02/02/25 14:35 Completed Urinalysis and Microscopic Stat Lab 02/02/25 13:35 Completed Urine Chlam/Gono/Trich, SHIVANI Stat Lab 02/02/25 13:35 Received Urine Culture Stat Micro 02/02/25 13:35 Received Testicular US [US Testicular] Stat Ultrasound 02/02/25 13:40 Completed Medical Decision Narrative: In summary, pt is a 44 year old male PMHx obesity, HTN, GERD, Vit D deficiency who presents to the ED for complaints of right upper quadrant, right lower quadrant abdominal pain that has been present intermittently for a few months, associated with right testicle pain that has been present for several days. Patient also adds that he has a rash on his penis that has been there for several months intermittently, has been treated with cream for yeast infection however no relief. Patient denies being sexually active for the past 20 years. Reports minimal alcohol use. He denies fever, chills, headache, visual disturbances, chest pain, shortness of breath, nausea, vomiting, dysuria, hematuria, diarrhea. Upon initial evaluation patient is alert and oriented. He is obese. Physical exam remarkable for right upper quadrant, right lower quadrant abdominal tenderness, abdomen is soft. With java technical architect RN in room, testicles was examined and revealed right testicular tenderness, multiple open lesions on the penile shaft noted. Discussed with patient we will proceed with labs, CT scan of the abdomen and pelvis, ultrasound of the right testicle and will test for STDs. He is agreeable to plan of care at this time. Hematologic labs reviewed. CBC remarkable for mild leukocytosis, WBC 12, stable H&H. CBC unremarkable for any actionable abnormalities. Lipase 70. Urinalysis remarkable for negative nitrite, 2+ leuk, 20-50 WBC, occasional squames. Patient CT remarkable for diverticulosis, pancreatic inflammation, testicular ultrasound remarkable for bilateral varicoceles. I had a long discussion with the patient about his CT findings, I advised him that the mild pancreatic inflammation could be reactive to his minimal alcohol use or early pancreatic cancer. I advised him he will need to follow-up with GI and have an endoscopy. I placed a referral on his discharge papers. I discussed that he does not need to drink any more alcohol until evaluated further. We discussed diverticulosis. I advised him that due to the varicoceles he will need to wear tight underwear or jockstrap. I will treat him for urinary tract infection and we discussed use of his antibiotics. Discussed that the STI testing will take a few days, he should check his MyChart for his results. Patient verbalized understanding of the importance of follow- up, especially for the pancreatic findings. Advised him to return to the ED for any worsening of his condition. [place]: I was consulted by the MANUEL, and we discussed the complexity of the problems being addressed. I approved the treatment and management plan for this patient's care in the emergency department, thus performing a substantive portion of the medical decision making. I agree with initial workup and evaluation which was pending at time of transfer of care to the oncoming physician, Dr. Pierre. <[place] MD - Last Filed: 02/02/25 15:06> Vital Signs: 02/02/25 13:47 02/02/25 14:53 02/02/25 15:30 Temperature 98.2 F Temperature Source Oral Pulse Rate 77 78 Pulse Rate [Right] 89 Respiratory Rate 22 18 Blood Pressure 121/66 103/62 L Blood Pressure [Right Arm] 115/70 Blood Pressure Mean 75 Blood Pressure Mean [Right Arm] 85 Blood Pressure Source 02 Sat by Pulse Oximetry 95 99 99 Oxygen Delivery Method Room Air Room Air 02/02/25 15:57 Temperature 98.2 F Temperature Source Oral Pulse Rate 80 Pulse Rate [Right] Respiratory Rate 20 Blood Pressure 132/62 Blood Pressure [Right Arm] Blood Pressure Mean Blood Pressure Mean [Right Arm] Blood Pressure Source Automatic Cuff 02 Sat by Pulse Oximetry Oxygen Delivery Method Room Air Lab Data Lab Results 02/02/25 13:35: Urine Color Yellow, Urine Appearance Clear, Urine pH 5.5, Ur Specific [place] >= 1.030, Urine Protein Negative, Urine Glucose (UA) Negative, Urine Ketones Negative, Urine Blood Trace-i, Urine Nitrate Negative, Urine Bilirubin Negative, Urine Urobilinogen 0.2, Ur Leukocyte Esterase 2+ A, Urine RBC 3-5, Urine WBC 20-50, Ur Squamous Epith Cells Occasional, Urine Bacteria Trace 02/02/25 14:35: WBC 12.0 H, RBC 4.60, Hgb 12.4 L, Hct 38.1 L, MCV 82.8, MCH 27.0, MCHC 32.5, RDW 14.6, Plt Count 344, MPV 9.6, Neut % (Auto) 75.1, Lymph % (Auto) 15.9, [place] % (Auto) 5.9, Eos % (Auto) 1.9, Baso % (Auto) 0.4, Neut # (Auto) 9.0 H, Lymph # (Auto) 1.9, [place] # (Auto) 0.7, Eos # (Auto) 0.2, Baso # (Auto) 0.1, Sodium 137, Potassium 3.9, Chloride 102, Carbon Dioxide 26, Anion Gap 12.9, BUN 25 H, Creatinine 1.00, Estimated Creat Clear 89, Estimated GFR 80, Est GFR ( Amer) 97, Glucose 114 H, Calcium 9.4, Total Bilirubin 0.6, AST 31, ALT 23, Alkaline Phosphatase 71, Total Protein 7.6, Albumin 4.3, Globulin 3.3 H, Albumin/Globulin Ratio 1.3, Lipase 70 Orders (Tests/Meds): ED MEDICATIONS Discontinued Medications Generic Name Dose Route Start Last Admin Trade Name Fidencio PRN Reason Stop Dose Admin Iopamidol 75 ml 02/02/25 15:08 02/02/25 15:13 Iopamidol-370 (76%);100ml Bottle IV 02/02/25 15:09 75 ml ONCE ONE Administration Morphine Sulfate 4 mg 02/02/25 13:40 02/02/25 14:37 Morphine 2mg/Ml Syringe IV 02/02/25 13:41 4 mg ONCE ONE Administration Ondansetron HCl 4 mg 02/02/25 13:40 02/02/25 14:37 Ondansetron 4mg/2ml Vial IV 02/02/25 13:41 4 mg ONCE ONE Administration Sodium Chloride 10 ml 02/02/25 15:08 02/02/25 15:13 Sodium Chloride 0.9% 10ml Syr (Rad Only) IV 02/02/25 15:09 10 ml ONCE ONE Administration ORDERS Category Date Time Status CT abdomen pelvis w con Stat Cat Scan 02/02/25 13:40 Completed CBC w/Auto Diff [Complete Blood Count Auto Diff] Stat Lab 02/02/25 14:35 Completed CMP [Comprehensive Metabolic Panel] Stat Lab 02/02/25 14:35 Completed HSV 1/2 PCR, (BLOOD/SWAB) Routine Lab 02/02/25 13:40 Received Hepatitis Panel Stat Lab 02/02/25 14:35 Received Lipase Stat Lab 02/02/25 14:35 Completed Urinalysis and Microscopic Stat Lab 02/02/25 13:35 Completed Urine Chlam/Gono/Trich, SHIVANI Stat Lab 02/02/25 13:35 Received Urine Culture Stat Micro 02/02/25 13:35 Received Testicular US [US Testicular] Stat Ultrasound 02/02/25 13:40 Completed Medical Decision Narrative: In summary, pt is a 44 year old male PMHx obesity, HTN, GERD, Vit D deficiency who presents to the ED for complaints of right upper quadrant, right lower quadrant abdominal pain that has been present intermittently for a few months, associated with right testicle pain that has been present for several days. Patient also adds that he has a rash on his penis that has been there for several months intermittently, has been treated with cream for yeast infection however no relief. Patient denies being sexually active for the past 20 years. He denies fever, chills, headache, visual disturbances, chest pain, shortness of breath, nausea, vomiting, dysuria, hematuria, diarrhea. Upon initial evaluation patient is alert and oriented. He is obese. Physical exam remarkable for right upper quadrant, right lower quadrant abdominal tenderness, abdomen is soft. With java technical architect RN in room, testicles was examined and revealed right testicular tenderness, multiple open lesions on the penile shaft noted. Discussed with patient we will proceed with labs, CT scan of the abdomen and pelvis, ultrasound of the right testicle and will test for STDs. He is agreeable to plan of care at this time. Hematologic labs reviewed. CBC remarkable for mild leukocytosis, WBC 12, stable H&H. CBC unremarkable for any actionable abnormalities. Lipase 70. Urinalysis remarkable for negative nitrite, 2+ leuk, 20-50 WBC, occasional squames. [place]: I was consulted by the MANUEL, and we discussed the complexity of the problems being addressed. I approved the treatment and management plan for this patient's care in the emergency department, thus performing a substantive portion of the medical decision making. I agree with initial workup and evaluation which was pending at time of transfer of care to the oncoming physician, Dr. Pierre. <Jake Pierre MD - Last Filed: 02/03/25 02:20> Vital Signs: 02/02/25 13:47 02/02/25 14:53 02/02/25 15:30 Temperature 98.2 F Temperature Source Oral Pulse Rate 77 78 Pulse Rate [Right] 89 Respiratory Rate 22 18 Blood Pressure 121/66 103/62 L Blood Pressure [Right Arm] 115/70 Blood Pressure Mean 75 Blood Pressure Mean [Right Arm] 85 Blood Pressure Source 02 Sat by Pulse Oximetry 95 99 99 Oxygen Delivery Method Room Air Room Air 02/02/25 15:57 Temperature 98.2 F Temperature Source Oral Pulse Rate 80 Pulse Rate [Right] Respiratory Rate 20 Blood Pressure 132/62 Blood Pressure [Right Arm] Blood Pressure Mean Blood Pressure Mean [Right Arm] Blood Pressure Source Automatic Cuff 02 Sat by Pulse Oximetry Oxygen Delivery Method Room Air Lab Data Lab Results 02/02/25 13:35: Urine Color Yellow, Urine Appearance Clear, Urine pH 5.5, Ur Specific [place] >= 1.030, Urine Protein Negative, Urine Glucose (UA) Negative, Urine Ketones Negative, Urine Blood Trace-i, Urine Nitrate Negative, Urine Bilirubin Negative, Urine Urobilinogen 0.2, Ur Leukocyte Esterase 2+ A, Urine RBC 3-5, Urine WBC 20-50, Ur Squamous Epith Cells Occasional, Urine Bacteria Trace 02/02/25 14:35: WBC 12.0 H, RBC 4.60, Hgb 12.4 L, Hct 38.1 L, MCV 82.8, MCH 27.0, MCHC 32.5, RDW 14.6, Plt Count 344, MPV 9.6, Neut % (Auto) 75.1, Lymph % (Auto) 15.9, [place] % (Auto) 5.9, Eos % (Auto) 1.9, Baso % (Auto) 0.4, Neut # (Auto) 9.0 H, Lymph # (Auto) 1.9, [place] # (Auto) 0.7, Eos # (Auto) 0.2, Baso # (Auto) 0.1, Sodium 137, Potassium 3.9, Chloride 102, Carbon Dioxide 26, Anion Gap 12.9, BUN 25 H, Creatinine 1.00, Estimated Creat Clear 89, Estimated GFR 80, Est GFR ( Amer) 97, Glucose 114 H, Calcium 9.4, Total Bilirubin 0.6, AST 31, ALT 23, Alkaline Phosphatase 71, Total Protein 7.6, Albumin 4.3, Globulin 3.3 H, Albumin/Globulin Ratio 1.3, Lipase 70 Orders (Tests/Meds): ED MEDICATIONS Discontinued Medications Generic Name Dose Route Start Last Admin Trade Name Fidencio PRN Reason Stop Dose Admin Iopamidol 75 ml 02/02/25 15:08 02/02/25 15:13 Iopamidol-370 (76%);100ml Bottle IV 02/02/25 15:09 75 ml ONCE ONE Administration Morphine Sulfate 4 mg 02/02/25 13:40 02/02/25 14:37 Morphine 2mg/Ml Syringe IV 02/02/25 13:41 4 mg ONCE ONE Administration Ondansetron HCl 4 mg 02/02/25 13:40 02/02/25 14:37 Ondansetron 4mg/2ml Vial IV 02/02/25 13:41 4 mg ONCE ONE Administration Sodium Chloride 10 ml 02/02/25 15:08 02/02/25 15:13 Sodium Chloride 0.9% 10ml Syr (Rad Only) IV 02/02/25 15:09 10 ml ONCE ONE Administration ORDERS Category Date Time Status CT abdomen pelvis w con Stat Cat Scan 02/02/25 13:40 Completed CBC w/Auto Diff [Complete Blood Count Auto Diff] Stat Lab 02/02/25 14:35 Completed CMP [Comprehensive Metabolic Panel] Stat Lab 02/02/25 14:35 Completed HSV 1/2 PCR, (BLOOD/SWAB) Routine Lab 02/02/25 13:40 Received Hepatitis Panel Stat Lab 02/02/25 14:35 Received Lipase Stat Lab 02/02/25 14:35 Completed Urinalysis and Microscopic Stat Lab 02/02/25 13:35 Completed Urine Chlam/Gono/Trich, SHIVANI Stat Lab 02/02/25 13:35 Received Urine Culture Stat Micro 02/02/25 13:35 Received Testicular US [US Testicular] Stat Ultrasound 02/02/25 13:40 Completed Medical Decision Narrative: In summary, pt is a 44 year old male PMHx obesity, HTN, GERD, Vit D deficiency who presents to the ED for complaints of right upper quadrant, right lower quadrant abdominal pain that has been present intermittently for a few months, associated with right testicle pain that has been present for several days. Patient also adds that he has a rash on his penis that has been there for several months intermittently, has been treated with cream for yeast infection however no relief. Patient denies being sexually active for the past 20 years. Reports minimal alcohol use. He denies fever, chills, headache, visual disturbances, chest pain, shortness of breath, nausea, vomiting, dysuria, hematuria, diarrhea. Upon initial evaluation patient is alert and oriented. He is obese. Physical exam remarkable for right upper quadrant, right lower quadrant abdominal tenderness, abdomen is soft. With java technical architect RN in room, testicles was examined and revealed right testicular tenderness, multiple open lesions on the penile shaft noted. Discussed with patient we will proceed with labs, CT scan of the abdomen and pelvis, ultrasound of the right testicle and will test for STDs. He is agreeable to plan of care at this time. Hematologic labs reviewed. CBC remarkable for mild leukocytosis, WBC 12, stable H&H. CBC unremarkable for any actionable abnormalities. Lipase 70. Urinalysis remarkable for negative nitrite, 2+ leuk, 20-50 WBC, occasional squames. Patient CT remarkable for diverticulosis, pancreatic inflammation, testicular ultrasound remarkable for bilateral varicoceles. I had a long discussion with the patient about his CT findings, I advised him that the mild pancreatic inflammation could be reactive to his minimal alcohol use or early pancreatic cancer. I advised him he will need to follow-up with GI and have an endoscopy. I placed a referral on his discharge papers. I discussed that he does not need to drink any more alcohol until evaluated further. We discussed diverticulosis. I advised him that due to the varicoceles he will need to wear tight underwear or jockstrap. I will treat him for urinary tract infection and we discussed use of his antibiotics. Discussed that the STI testing will take a few days, he should check his MyChart for his results. Patient verbalized understanding of the importance of follow- up, especially for the pancreatic findings. Advised him to return to the ED for any worsening of his condition. [place]: I was consulted by the MANUEL, and we discussed the complexity of the problems being addressed. I approved the treatment and management plan for this patient's care in the emergency department, thus performing a substantive portion of the medical decision making. I agree with initial workup and evaluation which was pending at time of transfer of care to the oncoming physician, Dr. Pierre. I was consulted by the MANUEL, and we discussed the complexity of the problems being addressed. I approve the treatment and management plan for this patient's care in the emergency department, thus performing a substantive portion of the medical decision making. Given the patient's testicular pain in setting of 2+ leukocytes of 20-50 white blood cells, agreed with proceeding with oral antibiotics for possible bacterial urinary tract infection/orchitis, however infection could be viral in nature as well. Agree with nystatin for candidal infection and to follow-up with results of STI testing on MyChart. Jake Pierre MD Critical Care <[place] MD - Last Filed: 02/02/25 15:06> Critical Care Time Critical Care Time: No
[2025-02-02 13:47] VITALS: BP 115/70; PULSE 89; RESP 22; TEMP 36.8; O2SAT 95; BMI 62.1
[2025-02-02 13:47] LABS: Microscopic, Urine URINE MICROSCOPIC (MICROSCOPIC)
[2025-02-02 13:57] LABS: Bilirubin,Urine Negative (Negative); Color,Urine YELLOW (Yellow); Glucose,Urine (UA) Negative (Negative); Ketones,Urine Negative (Negative); Leukocyte Esterase,Urine 2+ (Negative); PH,Urine 5.5 (5.0-8.5); Protein,Urine Negative (Negative); Specific Gravity, Urine >= 1.030 (1.005-1.030); Urobilinogen,Urine 0.2 EU/dl (0.2)
[2025-02-02 14:10] LABS: WBC,Urine 20-50 #/hpf (0-3)
[2025-02-02 14:12] LABS: Squamous Epithelial Cell,Urine Occasional #/hpf (0-5)
[2025-02-02 14:13] LABS: Bacteria,Urine Trace /lpf
[2025-02-02] MEDS: MORPHINE 2MG/ML SYRINGE 4 MG IV (14:37)
[2025-02-02] MEDS: ONDANSETRON 4MG/2ML VIAL 4 MG IV (14:37)
[2025-02-02 14:44] LABS: Hematocrit 38.1 % (42.0-52.0); Hemoglobin 12.4 g/dL (14.1-18.0); Immature Granulocytes % 0.8 %; Mean Corpuscular HGB Conc 32.5 g/dL (31.8-35.4); Mean Corpuscular Hemoglobin 27.0 pg (27.0-31.2); Mean Corpuscular Volume 82.8 fl (80-94); Nucleated Red Blood Cells % 0 %; Platelet Count 344 K/mm3 (142-424); Red Blood Count 4.60 M/mm3 (4.60-6.20); Red Cell Distribution Width-SD 43.5 fL; White Blood Count 12.0 K/mm3 (4.8-10.8)
[2025-02-02 14:47] LABS: Albumin Level 4.3 g/dl (3.5-5.0); Chloride 102 mmol/L (98-107)
[2025-02-02 14:48] LABS: Potassium 3.9 mmoL/L (3.5-5.1); Sodium 137 mmol/L (136-145)
[2025-02-02 14:50] LABS: Alanine Aminotransferase 23 U/L (12-78); Alkaline Phosphatase 71 U/L (38-126); Anion Gap 12.9 mEq/L (5-15); Aspartate Amino Transferase 31 U/L (17-59); Bilirubin,Total 0.6 mg/dl (0.2-1.3); Blood Urea Nitrogen 25 mg/dl (9-20); Carbon Dioxide 26 mmol/L (22.0-30.0); Creatinine Clearance Estimated 89 mL/min (50-200); Creatinine,Serum 1.00 mg/dl (0.66-1.25); Estimated Glomerular Filt Rate 80 ml/min (>60); GFR (African American) 97 ML/MIN (>60)
[2025-02-02 14:51] LABS: Albumin/Globulin Ratio 1.3 (1.1-1.8); Calcium 9.4 mg/dl (8.4-10.2); Globulin 3.3 g/dL (1.3-3.2); Glucose 114 mg/dl (74-100); Lipase 70 U/L (23-300); Total Protein,Serum 7.6 g/dl (6.3-8.2)
[2025-02-02 14:53] VITALS: BP 121/66; PULSE 77; O2SAT 99
[2025-02-02] MEDS: SODIUM CHLORIDE 0.9% 10ML SYR (RAD ONLY) 10 ML IV (15:13)
[2025-02-02] MEDS: IOPAMIDOL-370 (76%);100ML BOTTLE 75 ML IV (15:13)
[2025-02-02 15:30] VITALS: BP 103/62; PULSE 78; RESP 18; O2SAT 99
--- NOTE | 2025-02-02 15:55 | PC.NURSE ---
Yareli Soto APRN at bedside and discussing d/c information & referral.
[2025-02-02 15:57] VITALS: BP 132/62; PULSE 80; RESP 20; TEMP 36.8; O2SAT 98
== END 2025-02-02 16:06 | disposition home or self-care (01) ==
PROVIDERS: Nurse Practitioner; Emergency Provider Emergency Medicine; PCP Family Medicine
DX: R10.31 Right lower quadrant pain (principal); N39.0 Urinary tract infection, site not specified; I86.1 Scrotal varices; K57.90 Diverticulosis of intestine, part unspecified, without perforation or abscess without bleeding; I10 Essential (primary) hypertension
CPT/HCPCS: 74177; 76870; 80053; 80074; 81001; 83690; 85025; 87086; 87491; 87529; 87591; 87661; 96374; 96375; 99285; J2270; J2405; Q9967

== ENCOUNTER 2025-03-12 10:20 | Outpatient (CLI) | payer OTHER, SELFPAY ==
[2025-03-12 15:38] LABS: Cholesterol 150 mg/dl (140-200); HDL Cholesterol 36 mg/dl (40-60); Lipase 97 U/L (23-300); Triglycerides 150 mg/dl (30-150)
== END 2025-03-12 23:59 | disposition home or self-care (01) ==
LOC: LAB.DROPOF 03-13 10:39
PROVIDERS: PCP Family Medicine; Visit Provider Family Medicine
DX: K85.10 Biliary acute pancreatitis without necrosis or infection (principal); Q45.3 Other congenital malformations of pancreas and pancreatic duct
CPT/HCPCS: 80061; 83690

== ENCOUNTER 2025-04-06 06:51 | Outpatient (CLI) | payer OTHER, SELFPAY ==
--- NOTE | 2025-04-06 07:15 | MR_ITS ---
FINAL REPORT TECHNIQUE: Multiplanar and multisequence imaging was obtained before and after the intravenous injection of gadolinium contrast. CLINICAL HISTORY: epigastric pain/pancreatic head inflammation on CT COMPARISON: CT of the abdomen and pelvis 02/02/2025 FINDINGS: Exam quality is limited by patient's body habitus. Fatty infiltration of the liver remains present. No focal hepatic lesion is noted. The gallbladder is present. The spleen is normal in size and signal intensity. The adrenal glands are without acute abnormality. There is no peripancreatic abnormal signal intensity identified. No pancreatic mass is noted. No abnormal enhancement is present to suggest pancreatic inflammatory change. There is no hydronephrosis or renal mass. The kidneys are unremarkable. Limited evaluation of the GI tract is without acute abnormality. There is no abdominal lymphadenopathy or ascites. Postcontrast images reveal no abnormal enhancement. IMPRESSION: The pancreas is unremarkable in appearance, and no peripancreatic abnormal signal intensity is present. No findings are noted to suggest pancreatitis. Fatty infiltration of the liver remains present. Reviewed, Interpreted and Dictated by Susy Caro MD Transcribed by Argenis Hu Authenticated and [facility]
[2025-04-06 07:38] LABS: Blood Urea Nitrogen 22 mg/dl (9-20); Creatinine,Serum 1.00 mg/dl (0.66-1.25); Estimated Glomerular Filt Rate 80 ml/min (>60); GFR (African American) 97 ML/MIN (>60)
[2025-04-06] MEDS: GADOTERIDOL INJ 10ML SYRINGE 10 ML IV (08:36)
[2025-04-06] MEDS: SODIUM CHLORIDE 0.9% 10ML SYR (RAD ONLY) 10 ML IV (08:37)
[2025-04-06] MEDS: GADOTERIDOL INJ 20ML SYRINGE 20 ML IV (08:37)
== END 2025-04-06 23:59 | disposition home or self-care (01) ==
LOC: RAD 06:52
PROVIDERS: PCP Family Medicine; Visit Provider Nurse Practitioner Family
DX: K76.0 Fatty (change of) liver, not elsewhere classified (principal); K85.80 Other acute pancreatitis without necrosis or infection; R10.13 Epigastric pain; R10.11 Right upper quadrant pain
CPT/HCPCS: 36415; 74183; 82565; 84520; A9576